=== PATIENT | female | born 1955 | race Caucasian/White ===

== ENCOUNTER → 2016-04-13 17:20 | Outpatient (CLI) | payer BC ==
[2015-03-04 07:11] VITALS: BMI 33.2
[~2016-04-13 17:20] MED LIST: ASPIRIN EC81 M1 PO; DIOVAN HCT 160/1 TA1 PO; NORVASC10 MG PO; PERCOCET 5-3251 TAB PO; VITAMIN D250000 UNIT PO; ZANTAC150 MG PO; ZOCOR20 MG PO
== END | disposition home or self-care (01) ==
LOC: D.MAMMO 15:30
DX: Z12.31 Encounter for screening mammogram for malignant neoplasm of breast (principal)

== ENCOUNTER → 2016-05-13 15:58 | Outpatient (CLI) | payer BC ==
[2015-03-04 07:11] VITALS: BMI 33.2
== END | disposition home or self-care (01) ==
LOC: D.MAMMO 09:30
DX: R92.2 Inconclusive mammogram (principal)

== ENCOUNTER → 2017-07-11 19:55 | Outpatient (CLI) | payer BC ==
[2015-03-04 07:11] VITALS: BMI 33.2
== END | disposition home or self-care (01) ==
LOC: D.MAMMO 14:30
DX: Z12.31 Encounter for screening mammogram for malignant neoplasm of breast (principal)

== ENCOUNTER 2018-07-15 13:12 | Emergency (ER) | payer BC ==
[~2018-07-15] VITALS: Ht 172.7 cm; Wt 97.7 kg
[2018-07-15 13:31] VITALS: Ht 172.7 cm; Wt 97.7 kg
[2018-07-15] MEDS ORDERED: ADVIL200 MG PO (13:35)
[2018-07-15] MEDS ORDERED: OMEPRAZOLE20 M1 PO (13:35)
[2018-07-15] MEDS ORDERED: HYDROCODON-ACE1 EAC7 PO (16:02)
[2018-07-15] MEDS ORDERED: VOLTAREN75 MG PO (16:02)
[2018-07-15 17:54] VITALS: BP 118/80
== END 2018-07-15 17:54 | disposition home or self-care (01) ==
LOC: D.ER 13:12
DX: S42.291A Other displaced fracture of upper end of right humerus, initial encounter for closed fracture (principal); W18.31XA Fall on same level due to stepping on an object, initial encounter; Y93.02 Activity, running; Y92.014 Private driveway to single-family (private) house as the place of occurrence of the external cause

== ENCOUNTER 2018-07-19 09:19 | Inpatient (IN) | payer BC ==
[~2018-07-19] VITALS: Ht 172.7 cm; Wt 82.6 kg
[~2018-07-19 09:19] MED LIST changes: +ADVIL200 MG PO; +HYDROCODON-ACE1 EAC7 PO; +OMEPRAZOLE20 M1 PO; +VOLTAREN75 MG PO
[2018-07-20 12:58] LABS: CALC OSMOLALITY 283 mosm/kg (275-300); CALCIUM 9.9 mg/dL (8.5-10.1); CARBON DIOXIDE 28.6 mmol/L (21.0-32.0); CHLORIDE - SERUM 102 mmol/L (98-107); CREATININE - SERUM 0.8 mg/dL (0.6-1.3); GLUCOSE 159 mg/dL (74-106); POTASSIUM - SERUM 3.6 mmol/L (3.5-5.1); SODIUM 140 mmol/L (136-145); UREA NITROGEN 19 mg/dL (7-18); eGFR NON AFRICAN AMERICAN 76 mL/min (90-120)
[2018-07-20 13:07] LABS: APTT 27.9 SECONDS (22.8-39.4); INR 1.08 (0.85-1.17); PROTIME 13.5 SECONDS (11.6-15.0)
[2018-07-20 13:18] LABS: BASOPHILS 0.1 % (0-2); EOSINOPHILS 2.6 % (0-7); HEMATOCRIT 39.2 % (36.0-48.0); HEMOGLOBIN 13.4 g/dL (12-16); IMMATURE GRANULOCYTES 0.1 % (0-5); LYMPHOCYTES 42.7 % (15-50); MCH 29.3 pg (26.0-34.0); MCHC 34.2 g/dL (31.0-37.0); MCV 85.8 fL (80.0-100.0); MEAN PLATELET VOLUME 9.9 fL (7.4-10.4); MONOCYTES 5.8 % (2-11); NEUTROPHILS 48.7 % (40-80); PLATELET COUNT 238 10x3/uL (130-400); RBC 4.57 10x6/uL (4.00-5.40); RDW 12.4 % (11.5-14.5); WBC 6.9 10x3/uL (4.8-10.8)
[2018-07-20 13:33] LABS: APPEARANCE CLEAR (CLEAR); BACTERIA FEW /hpf (NONE SEEN); BILIRUBIN NEGATIVE (NEGATIVE); COLOR YELLOW (YELLOW); EPITHELIAL CELLS 0-5 /hpf (0-5); GLUCOSE 500 mg/dL (NEGATIVE); KETONE NEGATIVE (NEGATIVE); MUCUS >1+ /lpf (NONE SEEN); NITRITE NEGATIVE (NEGATIVE); PROTEIN NEGATIVE (NEGATIVE); SPECIFIC GRAVITY 1.015 (1.005-1.020); UROBILINOGEN NORMAL (NORMAL); WHITE CELLS - URINE RARE /hpf (0-5)
[2018-07-20 13:34] LABS: RED CELLS - URINE 0-5 /hpf (0-5)
[2018-07-24] MEDS ORDERED: ATARAX 25 MG TA25 MG PO (07:31)
[2018-07-24] MEDS ORDERED: SOLIQUA 100 UNIT3 ML SQ (07:35)
[2018-07-24 07:38] VITALS: BP 139/65; BMI 33.0
--- NOTE | 2018-07-24 10:26 | NUR ---
0945 DR GRULLON HAS CANCELLED PT'S SURGERY FOR TODAY DUE TO A POWER OUTAGE THAT HAS AFFECTED THE COOLING SYSTEM IN THE OR. SURGERY IS TO BE RESCHEDULED FOR TOMORROW. PT TO BE ADMITTED TO HOSPITAL. 1020 REPORT CALLED TO SHELLY MANN RN. PT WILL BE TRANSFERRED TO ROOM 2238 VIA STRETCHER.
[2018-07-24 11:02] VITALS: BP 115/58; Ht 172.7 cm; Wt 82.6 kg
[2018-07-24 16:14] VITALS: BP 112/58
[2018-07-24 17:00] LABS: BASOPHILS 0.2 % (0-2); IMMATURE GRANULOCYTES 0.3 % (0-5); LYMPHOCYTES 36.6 % (15-50); MCH 29.2 pg (26.0-34.0); MCHC 34.2 g/dL (31.0-37.0); MCV 85.4 fL (80.0-100.0); MEAN PLATELET VOLUME 9.6 fL (7.4-10.4); MONOCYTES 7.8 % (2-11); NEUTROPHILS 52.1 % (40-80); PLATELET COUNT 222 10x3/uL (130-400); RBC 4.45 10x6/uL (4.00-5.40); RDW 12.6 % (11.5-14.5); WBC 6.4 10x3/uL (4.8-10.8)
[2018-07-24 17:16] LABS: ALBUMIN 3.5 g/dL (3.4-5.0); ALKALINE PHOSPHATASE 84 U/L (46-116); ALT (SGPT) 38 U/L (10-68); BILIRUBIN - TOTAL 0.79 mg/dL (0.2-1.3); CALC OSMOLALITY 285 mosm/kg (275-300); CALCIUM 9.9 mg/dL (8.5-10.1); CARBON DIOXIDE 27.2 mmol/L (21.0-32.0); CHLORIDE - SERUM 106 mmol/L (98-107); CREATININE - SERUM 0.7 mg/dL (0.6-1.3); GLUCOSE 146 mg/dL (74-106); POTASSIUM - SERUM 3.8 mmol/L (3.5-5.1); SODIUM 141 mmol/L (136-145); UREA NITROGEN 18 mg/dL (7-18); eGFR NON AFRICAN AMERICAN 89 mL/min (90-120)
[2018-07-24 19:05] LABS: APPEARANCE CLEAR (CLEAR); BILIRUBIN NEGATIVE (NEGATIVE); COLOR YELLOW (YELLOW); GLUCOSE NEGATIVE (NEGATIVE); KETONE NEGATIVE (NEGATIVE); NITRITE NEGATIVE (NEGATIVE); PROTEIN NEGATIVE (NEGATIVE); UROBILINOGEN NORMAL (NORMAL)
[2018-07-24 20:28] VITALS: BP 139/68
[2018-07-25 00:40] VITALS: BP 101/53
[2018-07-25 05:21] VITALS: BP 112/51
--- NOTE | 2018-07-25 05:53 | NUR ---
I have reviewed this patient and I concur with the Shift Assessment completed by the Licensed Practical Nurse today this shift.
[2018-07-25 07:22] LABS: BASOPHILS 0.2 % (0-2); HEMATOCRIT 37.4 % (36.0-48.0); HEMOGLOBIN 13.1 g/dL (12-16); IMMATURE GRANULOCYTES 0.3 % (0-5); LYMPHOCYTES 49.2 % (15-50); MCV 85.6 fL (80.0-100.0); MEAN PLATELET VOLUME 9.8 fL (7.4-10.4); MONOCYTES 8.4 % (2-11); NEUTROPHILS 36.9 % (40-80); PLATELET COUNT 228 10x3/uL (130-400); RBC 4.37 10x6/uL (4.00-5.40); RDW 12.8 % (11.5-14.5); WBC 6.4 10x3/uL (4.8-10.8)
[2018-07-25 07:49] LABS: ALBUMIN 3.3 g/dL (3.4-5.0); ALKALINE PHOSPHATASE 81 U/L (46-116); ALT (SGPT) 36 U/L (10-68); BILIRUBIN - TOTAL 0.73 mg/dL (0.2-1.3); CALC OSMOLALITY 287 mosm/kg (275-300); CALCIUM 9.8 mg/dL (8.5-10.1); CARBON DIOXIDE 25.9 mmol/L (21.0-32.0); CHLORIDE - SERUM 108 mmol/L (98-107); CREATININE - SERUM 0.7 mg/dL (0.6-1.3); GLUCOSE 142 mg/dL (74-106); POTASSIUM - SERUM 3.5 mmol/L (3.5-5.1); SODIUM 142 mmol/L (136-145); UREA NITROGEN 20 mg/dL (7-18); eGFR NON AFRICAN AMERICAN 89 mL/min (90-120)
--- NOTE | 2018-07-25 08:35 | NUR ---
PT RESTING IN BED WITH FAMILY AT BEDSIDE. NO ACUTE DISTRESS NOTED AT THIS TIME. BRUISING NOTED TO RIGHT UPPER EXTREMITY, LIMITED ROM TO RIGHT UPPER ARM. IV TO LEFT FOREARM WITH 1/2NS @ 50ML/HR INFUSING VIA PUMP. SITE WITHOUT REDNESS OR EDEMA. REPORTS PAIN 4/10 AT THIS TIME. DENIES FURTHER NEEDS AT THIS TIME. CL WITHIN REACH. ENCOURAGED TO CALL WITH NEEDS. CONTINUE POC
[2018-07-25 08:52] VITALS: BP 122/65
[2018-07-25] MEDS ORDERED: VISTARIL50 MG PO (11:33)
[2018-07-25] MEDS ORDERED: OXYCODONE HCL5 M1 PO (11:33)
[2018-07-25 12:20] VITALS: BP 123/70
--- NOTE | 2018-07-25 12:40 | NUR ---
IV DISCONTINUED FROM LEFT FOREARM. CATH INTACT. DISCHARGE INSTRUCTIONS PROVIDED WITH 2 SCRIPTS. PT DENIES QUESTIONS AT THIS TIME.
== END 2018-07-25 13:25 | disposition home or self-care (01) | DRG 563 ==
LOC: D.MS 07-24 07:10 → D.SDCHOLD 07-24 07:10 → D.MS 07-24 10:38 → D.SDCHOLD 07-25 10:37 → D.MS 07-25 10:53
PROVIDERS: Family Medicine; ADMIT Orthopaedic Surgery; ATTEND Orthopaedic Surgery
DX: S42.291A Other displaced fracture of upper end of right humerus, initial encounter for closed fracture (principal); X58.XXXA Exposure to other specified factors, initial encounter; Z53.8 Procedure and treatment not carried out for other reasons; I10 Essential (primary) hypertension; K21.9 Gastro-esophageal reflux disease without esophagitis; E11.65 Type 2 diabetes mellitus with hyperglycemia; Z78.0 Asymptomatic menopausal state; Z87.891 Personal history of nicotine dependence; E55.9 Vitamin D deficiency, unspecified

== ENCOUNTER 2018-07-31 05:11 | Inpatient (IN) | payer BC ==
[~2018-07-31] VITALS: Ht 172.7 cm; Wt 97.7 kg
[~2018-07-31 05:11] MED LIST changes: +ATARAX 25 MG TA25 MG PO; +OXYCODONE HCL5 M1 PO; +SOLIQUA 100 UNIT3 ML SQ; +VISTARIL50 MG PO
[2018-07-31 05:35] LABS: HEMATOCRIT 43.6 % (36.0-48.0); HEMOGLOBIN 15.3 g/dL (12-16); MCH 29.7 pg (26.0-34.0); MCHC 35.1 g/dL (31.0-37.0); MCV 84.7 fL (80.0-100.0); MEAN PLATELET VOLUME 9.6 fL (7.4-10.4); RBC 5.15 10x6/uL (4.00-5.40); RDW 12.5 % (11.5-14.5); WBC 7.2 10x3/uL (4.8-10.8)
[2018-07-31 06:02] LABS: ANION GAP 12.4 mmol/L (8-16); CALCIUM 10.5 mg/dL (8.5-10.1); CARBON DIOXIDE 28.4 mmol/L (21.0-32.0); CREATININE - SERUM 0.9 mg/dL (0.6-1.3); POTASSIUM - SERUM 3.8 mmol/L (3.5-5.1)
[2018-07-31 06:11] VITALS: BP 117/47; BMI 41.1
[2018-07-31] MEDS ORDERED: HYDROXYZINE HCL50 MG PO (06:20)
[2018-07-31] MEDS ORDERED: MICARDIS HCT 81 EACH PO (06:23)
[2018-07-31] MEDS ORDERED: CADUET 10 MG/101 TAB (06:24)
[2018-07-31] MEDS ORDERED: VOLTAREN75 MG PO (06:26)
[2018-07-31] MEDS ORDERED: BAYER CHEWABLE81 MG PO (06:30)
--- NOTE | 2018-07-31 08:23 | NUR ---
PLASMA BLADE SET TO 6/8 BOVIE PAD RIGHT THIGH [id number] EXP 02/16/2020
--- NOTE | 2018-07-31 10:30 | NUR ---
PT ARRRIVED TO UNIT TO ROOM 2225 ORIENTATED TO ROOM CL IN REACH
[2018-07-31 10:40] VITALS: BP 111/49
[2018-07-31 11:00] VITALS: BP 106/52
[2018-07-31 17:11] VITALS: BP 110/71
[2018-07-31 19:56] VITALS: BP 110/71; Ht 172.7 cm; Wt 97.7 kg
[2018-07-31 20:00] VITALS: BP 108/50
[2018-08-01] VITALS: BP 112/58
[2018-08-01 04:00] VITALS: BP 110/54
--- NOTE | 2018-08-01 04:21 | NUR ---
I have reviewed this patient and I concur with the Shift Assessment completed by the Licensed Practical Nurse today this shift.
[2018-08-01 06:45] LABS: BASOPHILS 0.1 % (0-2); HEMOGLOBIN 12.4 g/dL (12-16); IMMATURE GRANULOCYTES 0.2 % (0-5); LYMPHOCYTES 23.9 % (15-50); MCHC 33.5 g/dL (31.0-37.0); MCV 86.4 fL (80.0-100.0); MEAN PLATELET VOLUME 9.6 fL (7.4-10.4); MONOCYTES 10.3 % (2-11); NEUTROPHILS 64.5 % (40-80); PLATELET COUNT 214 10x3/uL (130-400); RBC 4.28 10x6/uL (4.00-5.40); RDW 12.9 % (11.5-14.5); WBC 8.1 10x3/uL (4.8-10.8)
[2018-08-01 07:01] LABS: CALC OSMOLALITY 279 mosm/kg (275-300); CALCIUM 9.5 mg/dL (8.5-10.1); CARBON DIOXIDE 25.1 mmol/L (21.0-32.0); CHLORIDE - SERUM 104 mmol/L (98-107); CREATININE - SERUM 0.7 mg/dL (0.6-1.3); GLUCOSE 163 mg/dL (74-106); MAGNESIUM - SERUM 1.8 mg/dL (1.8-2.4); SODIUM 137 mmol/L (136-145); UREA NITROGEN 17 mg/dL (7-18); eGFR NON AFRICAN AMERICAN 89 mL/min (90-120)
[2018-08-01 08:54] VITALS: BP 158/70
[2018-08-01 12:43] VITALS: BP 150/70
[2018-08-01 17:05] VITALS: BP 194/83
[2018-08-01 20:00] VITALS: BP 193/79
[2018-08-02 03:15] VITALS: BP 146/74
[2018-08-02 04:00] VITALS: BP 110/67
[2018-08-02 04:21] LABS: BASOPHILS 0 % (0-2); CALCIUM 10.1 mg/dL (8.5-10.1); CARBON DIOXIDE 24.8 mmol/L (21.0-32.0); CHLORIDE - SERUM 97 mmol/L (98-107); CREATININE - SERUM 0.8 mg/dL (0.6-1.3); EOSINOPHILS 0.1 % (0-7); GLUCOSE 210 mg/dL (74-106); HEMATOCRIT 37.6 % (36.0-48.0); HEMOGLOBIN 13.1 g/dL (12-16); IMMATURE GRANULOCYTES 0.4 % (0-5); LYMPHOCYTES 13.1 % (15-50); MAGNESIUM - SERUM 1.5 mg/dL (1.8-2.4); MCH 29.1 pg (26.0-34.0); MCHC 34.8 g/dL (31.0-37.0); MEAN PLATELET VOLUME 9.5 fL (7.4-10.4); NEUTROPHILS 72.4 % (40-80); PLATELET COUNT 187 10x3/uL (130-400); RDW 12.4 % (11.5-14.5); SODIUM 132 mmol/L (136-145); WBC 6.9 10x3/uL (4.8-10.8); eGFR NON AFRICAN AMERICAN 76 mL/min (90-120)
[2018-08-02 04:22] LABS: CALC OSMOLALITY 269 mosm/kg (275-300); POTASSIUM - SERUM 3.2 mmol/L (3.5-5.1); UREA NITROGEN 11 mg/dL (7-18)
[2018-08-02 04:26] LABS: MCV 83.6 fL (80.0-100.0)
--- NOTE | 2018-08-02 05:40 | NUR ---
I have reviewed this patient and I concur with the Shift Assessment completed by the Licensed Practical Nurse today this shift.
[2018-08-02] MEDS ORDERED: VISTARIL50 MG PO (08:53)
[2018-08-02] MEDS ORDERED: OXYCODONE HCL5 M1 PO (08:53)
--- NOTE | 2018-08-02 08:55 | NUR ---
PT RESTING IN BED WITH RIGHT ARM IN SLING. NO ACUTE DISTRESS NOTED. REPORTS PAIN 4/10 AT THIS TIME. IV TO LEFT HAND WITH 1/2 NS @ 50 ML/HR INFUSING VIA PUMP. SITE WITHOUT REDNESS OR EDEMA. PT DENIES FURTHER NEEDS AT THIS TIME. CL WITHIN REACH. ENCOURAGED TO CALL WITH NEEDS. CONTINUE POC
[2018-08-02 09:29] VITALS: BP 136/64
--- NOTE | 2018-08-03 13:30 | MORECARE ---
CASE MANAGEMENT DISCHARGE SUMMARY PATIENT: FELIPE CHAUHAN UNIT: [id number] ADM DATE: 07/31/18 AGE: 62 : 53 SEX: F ROOM/BED: D.2225 AUTHOR: STONEY SAINZ PHYSICIAN: REFERRING PHYSICIAN: FABIAN GRULLON DO DATE OF SERVICE: 08/03/18 Discharge Plan Patient Name: FELIPE CHAUHAN Facility: [facility]:[place] : 1955 Planned Disposition: Anticipated Discharge Date: Discharge Date: 08/02/2018 Expected LOS: 0 Initial Reviewer: [email or web address] Initial Review Date: 08/03/2018 Generated: 08/03/18 2:30 pm Patient Name: FELIPE CHAUHAN Page [phone] at 1330 All edits/amendments must be made on the electronic document DICTATION DATE: 08/03/18 1329 LACE PAPER MACHINE OPERATOR: DM 08/03/18 1329 RPT#: [id number] DC DATE:08/02/18 STATUS: DIS IN [facility] [address] [place] [address] END OF REPORT
== END 2018-08-02 13:10 | disposition home or self-care (01) | DRG 483 ==
LOC: D.SDCHOLD 05:11 → D.MS 10:20
PROVIDERS: Anesthesiology; Family Medicine; ADMIT Orthopaedic Surgery; ATTEND Orthopaedic Surgery
PROC: 0RRJ00Z Replacement of Right Shoulder Joint with Reverse Ball and Socket Synthetic Substitute, Open Approach (ICD-10-PCS; principal; 2018-07-31 07:00)
DX: S42.201A Unspecified fracture of upper end of right humerus, initial encounter for closed fracture (principal); E11.65 Type 2 diabetes mellitus with hyperglycemia; I10 Essential (primary) hypertension; K21.9 Gastro-esophageal reflux disease without esophagitis; E87.6 Hypokalemia; E83.42 Hypomagnesemia

== ENCOUNTER 2018-08-08 11:05 | Inpatient (IN) | payer BC ==
[~2018-08-08] VITALS: Ht 172.7 cm; Wt 90.7 kg
[~2018-08-08 11:05] MED LIST changes: +BAYER CHEWABLE81 MG PO; +CADUET 10 MG/101 TAB; +HYDROXYZINE HCL50 MG PO; +MICARDIS HCT 81 EACH PO
[2018-08-08 14:12] VITALS: BP 117/54
--- NOTE | 2018-08-08 14:15 | NUR ---
ASSESSMENT PER FLOW SHEET. PT IS WITHOUT DISTRESS.IV SITED TO LEFT HAND X1 STICK USING ASEPTIC TECH,22G.ORIENTATION TO ROOM.CALL LIGHT IN REACH.
[2018-08-08 14:17] VITALS: BP 115/54; BMI 30.4
--- NOTE | 2018-08-08 14:45 | NUR ---
TO OR VIA BED
[2018-08-08 14:48] LABS: BASOPHILS 0.1 % (0-2); EOSINOPHILS 2.2 % (0-7); HEMATOCRIT 34.3 % (36.0-48.0); HEMOGLOBIN 11.8 g/dL (12-16); IMMATURE GRANULOCYTES 0.5 % (0-5); LYMPHOCYTES 36.6 % (15-50); MCH 28.9 pg (26.0-34.0); MCHC 34.4 g/dL (31.0-37.0); MCV 83.9 fL (80.0-100.0); NEUTROPHILS 48.6 % (40-80); PLATELET COUNT 301 10x3/uL (130-400); RBC 4.09 10x6/uL (4.00-5.40); RDW 12.5 % (11.5-14.5); WBC 8.2 10x3/uL (4.8-10.8)
[2018-08-08 15:48] LABS: ALBUMIN 2.7 g/dL (3.4-5.0); ALKALINE PHOSPHATASE 132 U/L (46-116); ALT (SGPT) 39 U/L (10-68); BILIRUBIN - TOTAL 0.51 mg/dL (0.2-1.3); C-REACTIVE PROTEIN 14.5 mg/dL (0.0-0.9); CALC OSMOLALITY 276 mosm/kg (275-300); CALCIUM 10.2 mg/dL (8.5-10.1); CARBON DIOXIDE 28.8 mmol/L (21.0-32.0); CHLORIDE - SERUM 100 mmol/L (98-107); CREATININE - SERUM 0.7 mg/dL (0.6-1.3); GLUCOSE 119 mg/dL (74-106); POTASSIUM - SERUM 3.4 mmol/L (3.5-5.1); SODIUM 137 mmol/L (136-145); UREA NITROGEN 17 mg/dL (7-18); eGFR NON AFRICAN AMERICAN 89 mL/min (90-120)
[2018-08-08 15:54] LABS: ERYTHROCYTE SEDIMENTATION RATE 57 mm/hr (0-30)
--- NOTE | 2018-08-08 17:05 | NUR ---
TRAMINO AND BEACH CHAIR TABLE DEVICE USED FOR POSITIONING
[2018-08-08 18:42] VITALS: BP 102/43
--- NOTE | 2018-08-08 20:00 | NUR ---
PT SITTING UP IN BED, WITHOUT DISTRESS. AT BEDSIDE. ALERT AND ORIENTED. RIGHT ARM IN SLING, DRESSING TO RIGHT SHOULDER CDI. HEMOVAC WITH BLOODY DRAINAGE. WOUND VAC IN PLACE. IV LEFT HAND INFUSING 1/2NS @ 75. O2 4L/NC. SCDS IN PLACE. SIPPING WATER AND EATING ICE CHIPS AT THIS TIME. TOLERATING WELL. CL IN REACH, WILL CTM
--- NOTE | 2018-08-08 20:36 | NUR ---
SIPS OF EATER AND ICE CHIPS. PT STILL DENIES PAIN.WITHOUT CHANGE.CONT PLAN OF CARE
[2018-08-08 20:51] VITALS: BP 106/50
--- NOTE | 2018-08-08 21:00 | NUR ---
ASSISTED PT TO BATHROOM, VOIDED WITHOUT DIFFICULTY. PT STATES PAIN 5/10. GAVE OXY ORDERED. DENIES OTHER NEEDS. CL IN REACH, WILL CTM
--- NOTE | 2018-08-08 23:00 | NUR ---
PT EATING JELLO, DUGLAS CRACKERS, AND PEANUT BUTTER. DRINKING DIET COKE. TOLERATING WELL. DENIES OTHER NEEDS. CL IN REACH, WILL CTM
--- NOTE | 2018-08-09 00:20 | NUR ---
PT STATES PAIN 09/05. GAVE VISTARIL AND SCHEDULED TORADOL. APPLIED ICE PACK TO RIGHT SHOULDER. REPOSITIONED IN BED FOR COMFORT
[2018-08-09 01:35] VITALS: BP 117/50
--- NOTE | 2018-08-09 02:10 | NUR ---
PT WITH PAIN 10/06. GAVE OXY ORDERED. APPLIED NEW ICE PACK TO RIGHT SHOULDER. DENIES OTHER NEEDS. CL IN REACH, WILL CTM
[2018-08-09 06:17] LABS: BASOPHILS 0.1 % (0-2); EOSINOPHILS 1.5 % (0-7); HEMATOCRIT 33.9 % (36.0-48.0); HEMOGLOBIN 11.2 g/dL (12-16); IMMATURE GRANULOCYTES 0.4 % (0-5); LYMPHOCYTES 35.1 % (15-50); MCH 28.4 pg (26.0-34.0); MCV 85.8 fL (80.0-100.0); MEAN PLATELET VOLUME 9.2 fL (7.4-10.4); MONOCYTES 14.7 % (2-11); NEUTROPHILS 48.2 % (40-80); PLATELET COUNT 272 10x3/uL (130-400); RBC 3.95 10x6/uL (4.00-5.40); RDW 12.7 % (11.5-14.5); WBC 7.3 10x3/uL (4.8-10.8)
[2018-08-09 06:31] VITALS: BP 119/47
[2018-08-09 06:34] LABS: ALBUMIN 2.4 g/dL (3.4-5.0); ANION GAP 11.3 mmol/L (8-16); BILIRUBIN - TOTAL 0.55 mg/dL (0.2-1.3); CALCIUM 9.5 mg/dL (8.5-10.1); CARBON DIOXIDE 29.1 mmol/L (21.0-32.0); POTASSIUM - SERUM 3.4 mmol/L (3.5-5.1); PROTEIN - SERUM 5.9 g/dL (6.4-8.2)
[2018-08-09 06:39] LABS: CREATININE - SERUM 0.9 mg/dL (0.6-1.3)
--- NOTE | 2018-08-09 07:56 | OP ---
PATIENT NAME: FELIPE CHAUHAN MEDICAL RECORD: [id number] :51 LOCATION:D.MS Small4 ADMISSION DATE:08/08/18 SURGEON: FABIAN GRULLON DO DATE OF OPERATION: 08/08/2018 PROCEDURE PERFORMED: Right shoulder incision and debridement with poly exchange. PREOPERATIVE DIAGNOSIS: Right shoulder periprosthetic joint infection. POSTOPERATIVE DIAGNOSIS: Right shoulder periprosthetic joint infection. INDICATIONS: Ms. Chauhan is a 62-year-old female who 8 days ago underwent a right reverse total shoulder for fracture of the proximal humerus. She presented to my office today after having some drainage started yesterday and then more drainage today with purulent drainage out of her right shoulder from the incision site. She did not have any fevers, but she did have purulent drainage from the shoulder. She was directly admitted and signed up for surgery today. The patient was consented for I&D with poly exchange due to the acute infection. DESCRIPTION OF PROCEDURE: The patient received a block by anesthesia in the preoperative area, taken to the operative suite, laid in the supine position, then intubated and placed in the beach chair position. The right shoulder was prepped and draped in sterile fashion. Timeout was performed, everyone was in agreement of the correct side, site, and patient and procedure. Antibiotics were held until cultures were taken. Once the time out was performed, the incision was opened up and it was cultured. Then, 1 gram of vancomycin was given. I then used 3 liters of normal saline to irrigate the shoulder. The shoulder was then dislocated and the hardware was all stable, was not loose and the poly was removed off the humeral stem. Once this was done, the Bactisure was used to irrigate the shoulder thoroughly and a curette was used to scrape and debride any tissue that was . This was debrided thoroughly and then 2 more bags of 3 liters each of normal saline were then used to irrigate the shoulder. The new poly was popped on in between the second and third bag. The shoulder was reduced and ranged well and there was appropriate tautness on the deltoid and the conjoined tendon. Then, the third bag was used to irrigate over that. The drain was then placed in the superior shoulder going through the deltoid and antibiotic powders of vancomycin and tobramycin were placed in the shoulder. The shoulder was then closed with 3-0 Monocryl in an inverted interrupted fashion and 4-0 Monocryl ran on the skin and then a Prevena VAC was placed on the skin. The drain was sewed into place and the Hemovac was hooked up. The patient was placed in a sling, awakened, and taken to the recovery in stable condition. Blood loss was approximately 200 mL. COMPLICATIONS: None. TRANSINT:[id number] Voice Confirmation ID: [id number] DOCUMENT ID: [id number] OPERATIVE REPORT [id number] FELIPE CHAUHAN,FABIAN Lopez DO at 0756 CC: [id number] DICTATION DATE: 08/08/181820 FOOT AND ANKLE SURGEON: 08/09/18 0502 ADM IN [facility] [address] [place] [address]
[2018-08-09 10:10] VITALS: BP 115/62
[2018-08-09 12:13] VITALS: Ht 172.7 cm; Wt 90.7 kg
[2018-08-09 14:30] VITALS: BP 107/46
[2018-08-09 17:59] VITALS: BP 125/60
--- NOTE | 2018-08-09 19:45 | NUR ---
PT SITTING UP IN BED WITHOUT DISTRESS. NO PAIN AT THIS TIME, JUST TOOK OXY ON PREVIOUS SHIFT. O2 2L/NC. IV LEFT HAND INFUSING 1/2NS @ 75. ALERT AND ORIENTED. DENIES NEEDS. SCDS IN PLACE. WILL CTM
[2018-08-09 19:58] VITALS: BP 111/53
[2018-08-10] VITALS: BP 157/62
[2018-08-10 03:55] LABS: BASOPHILS 0.1 % (0-2); EOSINOPHILS 2.9 % (0-7); HEMATOCRIT 30.6 % (36.0-48.0); HEMOGLOBIN 10.3 g/dL (12-16); IMMATURE GRANULOCYTES 0.3 % (0-5); LYMPHOCYTES 43.6 % (15-50); MCH 28.2 pg (26.0-34.0); MCHC 33.7 g/dL (31.0-37.0); MEAN PLATELET VOLUME 8.8 fL (7.4-10.4); MONOCYTES 13.6 % (2-11); NEUTROPHILS 39.5 % (40-80); PLATELET COUNT 259 10x3/uL (130-400); RBC 3.65 10x6/uL (4.00-5.40); RDW 12.3 % (11.5-14.5); WBC 7.2 10x3/uL (4.8-10.8)
[2018-08-10 03:56] LABS: MCV 83.8 fL (80.0-100.0)
[2018-08-10 04:00] VITALS: BP 178/72
[2018-08-10 04:08] LABS: ALBUMIN 2.2 g/dL (3.4-5.0); ALKALINE PHOSPHATASE 109 U/L (46-116); ALT (SGPT) 26 U/L (10-68); BILIRUBIN - TOTAL 0.47 mg/dL (0.2-1.3); CALC OSMOLALITY 281 mosm/kg (275-300); CARBON DIOXIDE 27.1 mmol/L (21.0-32.0); CHLORIDE - SERUM 104 mmol/L (98-107); CREATININE - SERUM 0.8 mg/dL (0.6-1.3); GLUCOSE 183 mg/dL (74-106); POTASSIUM - SERUM 3.2 mmol/L (3.5-5.1); PROTEIN - SERUM 5.5 g/dL (6.4-8.2); SODIUM 138 mmol/L (136-145); UREA NITROGEN 14 mg/dL (7-18); eGFR NON AFRICAN AMERICAN 76 mL/min (90-120)
--- NOTE | 2018-08-10 07:50 | NUR ---
AWAKE AND ALERT. ORIENTED X3. REQUESTED AND GIVEN 10 MG OXY PO FOR C/O RIGHT ARM PAIN LEVEL 8. WILL MONITOR.
[2018-08-10 08:59] VITALS: BP 173/95
--- NOTE | 2018-08-10 09:57 | NUR ---
AWAKE AND ALERT. ORIENTED X3. REPORTS PAIN IMPROVED TO LEVEL 3 NOW. UP TO BR WITH MIN ASSIST OF ONE. DAUGHTER AT BEDSIDE. LUNGS ARE CLEAR BILATERALLY, NO COUGH NOTED. SKIN IS INTACT WITHOUT REDNESS EXCEPT INCISION TO RIGHT SHOULDER WHICH IS CLEAN AND DRY IWTH WOUND VAC IN PLACE.. SCANT OUTPUT AT THIS TIME. IV TO LEFT AC IS PATENT WITHOUT REDNESS AT INSERTION SITE. DENIES NEEDS.
--- NOTE | 2018-08-10 10:00 | NUR ---
RESTING QUIETLY IN BED. DAUGHTER AT BEDSIDE. SLING IN PLACE TO RIGHT ARM. DENIES NEEDS.
[2018-08-10 12:14] LABS: FUNGUS STAIN Final report (())
--- NOTE | 2018-08-10 12:30 | NUR ---
ATE ABOUT 75% OF LUNCH. DENIES NEEDS.
--- NOTE | 2018-08-10 13:46 | NUR ---
REQUESTED AND GIVEN 10MG OXY PO FOR C/O RIGHT SHOULDER PAIN LEVEL 8. WILL MONITOR.
[2018-08-10 13:48] VITALS: BP 186/81
--- NOTE | 2018-08-10 15:42 | MORECARE ---
CASE MANAGEMENT DISCHARGE SUMMARY PATIENT: FELIPE CHAUHAN UNIT: [id number] ADM DATE: 08/08/18 AGE: 62 : 53 SEX: F ROOM/BED: D.2204 AUTHOR: STONEY SAINZ PHYSICIAN: REFERRING PHYSICIAN: FABIAN GRULLON DO DATE OF SERVICE: 08/10/18 Discharge Plan Patient Name: FELIPE CHAUHAN Facility: [facility]:[place] : 1955 Planned Disposition: Anticipated Discharge Date: Discharge Date: Expected LOS: Initial Reviewer: [email or web address] Initial Review Date: 08/08/2018 Generated: 08/10/18 4:42 pm Comments DCP- Discharge Planning Updated by [email or web address]: Marissa Dunn on 08/10/18 2:[address] LYUBOV FROM [facility] CALLED TO FIND OUT A DISCHARGE PLAN, SHE ASKED ABOUT LTACH, IF THE PATIENT WAS GOING TO NEED ABX MORE THAT ONCE A DAY SHE ALSO SAID THAT [facility], [facility] AND [place] ARE IN-NETWORK. I WILL GET WITH MD TO SEE WHAT THEY ARE THINKING AND SPEAK WITH PATIENT LYUBOV CALL BACK NUMBER IS [phone] EXT # [phone] CM TO FOLLOW AND ASSIST WITH DC PLANNING Patient Name: FELIPE CHAUHAN Page [phone] at 1542 All edits/amendments must be made on the electronic document DICTATION DATE: 08/10/18 154 SECURITY CLERK: JOSE FRANCISCO 08/10/18 1542 RPT#: [id number] DC DATE: STATUS: ADM IN [facility] [address] [place] [address] END OF REPORT
--- NOTE | 2018-08-10 16:07 | MORECARE ---
CASE MANAGEMENT DISCHARGE SUMMARY PATIENT: FELIPE CHAUHAN UNIT: [id number] ADM DATE: 08/08/18 AGE: 62 : 53 SEX: F ROOM/BED: D.2204 AUTHOR: STONEY SAINZ PHYSICIAN: REFERRING PHYSICIAN: FABIAN GRULLON DO DATE OF SERVICE: 08/10/18 Discharge Plan Patient Name: FELIPE CHAUHAN Facility: [facility]:[place] : 1955 Planned Disposition: Home or Self Care Anticipated Discharge Date: Discharge Date: Expected LOS: Initial Reviewer: [email or web address] Initial Review Date: 08/08/2018 Generated: 08/10/18 5:06 pm Comments DCP- Discharge Planning Updated by [email or web address]: Marissa Dunn on 08/10/18 2:[address]UBOV FROM [facility] CALLED TO FIND OUT A DISCHARGE PLAN, SHE ASKED ABOUT LTACH, IF THE PATIENT WAS GOING TO NEED ABX MORE THAT ONCE A DAY SHE ALSO SAID THAT [facility], [facility] AND [employer] [facility] ARE IN-NETWORK. I WILL GET WITH MD TO SEE WHAT THEY ARE THINKING AND SPEAK WITH PATIENT LYUBOV CALL BACK NUMBER IS [phone] EXT # [phone] CM TO FOLLOW AND ASSIST WITH DC PLANNING DCPIA - Discharge Planning Initial Assessment Updated by [email or web address]: Marissa Dunn on 08/10/18 4:03 pm * Is the patient Alert and Oriented? Yes * How many steps to enter\exit or inside your home? STAIRS * PCP JESÚS * Pharmacy [facility] * Preadmission Environment Home with Family * ADLs Independent * Equipment None * List name and contact numbers for known caregivers / representatives who currently or will assist patient after discharge: ADRIANA [phone] * Verbal permission to speak to the caregivers and representatives has been obtained from the patient. Yes * Community resources currently utilized None * Additional services required to return to the preadmission environment? Yes * Can the patient safely return to the preadmission environment? Yes * Has this patient been hospitalized within the prior 30 days at any hospital? Yes Last DP export: 08/10/18 2:42 p Patient Name: FELIPE CHAUHAN Page [id number] at 1607 All edits/amendments must be made on the electronic document DICTATION DATE: 08/10/181605 DOCUMENTATION CLERK: JOSE FRANCISCO 08/10/181605 RPT#: [id number] DC DATE: STATUS: ADM IN [facility] [address] [place] [address] END OF REPORT
--- NOTE | 2018-08-10 16:15 | MORECARE ---
CASE MANAGEMENT DISCHARGE SUMMARY PATIENT: FELIPE CHAUHAN UNIT: [id number] ADM DATE: 08/08/18 AGE: 62 : 53 SEX: F ROOM/BED: D.2204 AUTHOR: STONEY SAINZ PHYSICIAN: REFERRING PHYSICIAN: FABIAN GRULLON DO DATE OF SERVICE: 08/10/18 Discharge Plan Patient Name: FELIPE CHAUHAN Facility: [facility]:[place] : 1955 Planned Disposition: Home or Self Care Anticipated Discharge Date: Discharge Date: Expected LOS: Initial Reviewer: [email or web address] Initial Review Date: 08/08/2018 Generated: 08/10/18 5:15 pm Comments DCP- Discharge Planning Updated by [email or web address]: Marissa Dunn on 08/10/18 3:[address] Patient Name: FELIPE CHAUHAN Admission Status: Elective Accout number: [id number] Admission Date: 08-08-2018 : 1955 Admission Diagnosis: Attending: FABIAN GRULLON Current LOS: 2 Anticipated DC Date: Planned Disposition: Home or Self Care Primary Insurance: [employer] [facility] Discharge Planning Comments: CM met with patient to complete initial dc planning assessment. CM educated patient on the CM role and verbal consent given by patient to complete assessment. Patient lives at home with her where she is independent with her care. At discharge patient is unsure on what her discharge plan is. It will depend on what abx and how often she will receive them. CM discussed availability of home health, rehab services, and medical equipment. We will wait to see what the patient will need. Patient denied known discharge needs at this time. CM will continue to follow and will assist as needed with dc plans/needs. Ferruler: Marissa Dunn DCP- Discharge Planning Updated by [id number]: Marissa Dunn on 08/10/18 2:[address] LYUBOV FROM [employer] CALLED TO FIND OUT A DISCHARGE PLAN, SHE ASKED ABOUT LTACH, IF THE PATIENT WAS GOING TO NEED ABX MORE THAT ONCE A DAY SHE ALSO SAID THAT [facility], [facility] [employer] AND [facility] [employer] ARE IN-NETWORK. I WILL GET WITH MD TO SEE WHAT THEY ARE THINKING AND SPEAK WITH PATIENT LYUBOV CALL BACK NUMBER IS [phone] EXT # [phone] CM TO FOLLOW AND ASSIST WITH DC PLANNING DCPIA - Discharge Planning Initial Assessment Updated by [email or web address]: Marissa Dunn on 08/10/18 4:03 pm * Is the patient Alert and Oriented? Yes * How many steps to enter\exit or inside your home? STAIRS * PCP JESÚS * Pharmacy [facility] * Preadmission Environment Home with Family * ADLs Independent * Equipment None * List name and contact numbers for known caregivers / representatives who currently or will assist patient after discharge: ADRIANA [phone] * Verbal permission to speak to the caregivers and representatives has been obtained from the patient. Yes * Community resources currently utilized None * Additional services required to return to the preadmission environment? Yes * Can the patient safely return to the preadmission environment? Yes * Has this patient been hospitalized within the prior 30 days at any hospital? Yes Last DP export: 08/10/18 3:06 p Patient Name: FELIPE CHAUHAN Page [phone] at 1615 All edits/amendments must be made on the electronic document DICTATION DATE: 08/10/18 161 FLIGHT PARAMEDIC: JOSE FRANCISCO 08/10/18 161 RPT#: [id number] DC DATE: STATUS: ADM IN [facility] [address] [place] [address] END OF REPORT
[2018-08-10 17:49] VITALS: BP 157/77
[2018-08-10 20:00] VITALS: BP 141/62
[2018-08-11] VITALS: BP 150/65
[2018-08-11 04:00] VITALS: BP 144/78
[2018-08-11 06:52] LABS: BASOPHILS 0.1 % (0-2); EOSINOPHILS 3.2 % (0-7); HEMOGLOBIN 10.7 g/dL (12-16); IMMATURE GRANULOCYTES 0.3 % (0-5); LYMPHOCYTES 39.8 % (15-50); MCH 28.2 pg (26.0-34.0); MCHC 33.4 g/dL (31.0-37.0); MCV 84.2 fL (80.0-100.0); MEAN PLATELET VOLUME 8.8 fL (7.4-10.4); MONOCYTES 13.2 % (2-11); NEUTROPHILS 43.4 % (40-80); PLATELET COUNT 274 10x3/uL (130-400); RDW 12.5 % (11.5-14.5); WBC 7.1 10x3/uL (4.8-10.8)
[2018-08-11 07:29] LABS: ALBUMIN 2.3 g/dL (3.4-5.0); ALKALINE PHOSPHATASE 102 U/L (46-116); ALT (SGPT) 27 U/L (10-68); BILIRUBIN - TOTAL 0.54 mg/dL (0.2-1.3); CALCIUM 9.5 mg/dL (8.5-10.1); CARBON DIOXIDE 25.8 mmol/L (21.0-32.0); CHLORIDE - SERUM 103 mmol/L (98-107); CREATININE - SERUM 0.7 mg/dL (0.6-1.3); POTASSIUM - SERUM 3.4 mmol/L (3.5-5.1); PROTEIN - SERUM 5.9 g/dL (6.4-8.2); SODIUM 137 mmol/L (136-145); UREA NITROGEN 11 mg/dL (7-18); eGFR NON AFRICAN AMERICAN 89 mL/min (90-120)
[2018-08-11 07:35] LABS: CALC OSMOLALITY 274 mosm/kg (275-300); GLUCOSE 127 mg/dL (74-106)
--- NOTE | 2018-08-11 08:10 | NUR ---
PT ALERT X 4. BREATH SOUNDS CLEAR BILAT. DRESSING TO RIGHT SHOULDER CDI, WOUND VAC IN PLACE, NO OUTPUT, SLING IN PLACE. PT REPORTING PAIN OF 5/10, WILL MONITOR. PICC LINE TO LEFT UPPER ARM, PATENT, DRESSING CDI. FAMILY AT BEDSIDE. BED LOW, CALL LIGHT IN REACH. NO OTHER NEEDS AT THIS TIME.
[2018-08-11 09:43] VITALS: BP 174/67
[2018-08-11 14:17] VITALS: BP 152/63
[2018-08-11 17:44] VITALS: BP 179/95
--- NOTE | 2018-08-11 19:10 | NUR ---
PT ALERT AND ORIENTED. DAUGHTER AT BEDSIDE. PT RIGHT SHOULDER IN IMMOBILIZER. HAS WOUND VAC CONNECTED TO SHOULDER INCISION. CURRENTLY NO OUTPUT IN WOUND VAC. SUCTION ON AND MACHINE IS WORKING APPROPRIATELY. PATIENT REQUESTS PAIN MEDICINE. RATES PAIN 8/10 AND SEVERE DULL. PT IS AMBULATORY TO BATHROOM WITH ASSISTANCE. DENIES FURTHER NEEDS FROM NURSING STAFF. HAS LEFT UPPER ARM PICC LINE WITH BRUISING NOTED, BUT FLUSHES AND PULLS BACK EFFECTIVELY. CALL LIGHT IS IN REACH. PATIENT DEMONSTRATES HOW TO USE CORRECTLY. BED IN LOWEST POSITION. SIDE RAILS UP X 2. VERBALIZES SHE WILL USE CALL LIGHT WHEN IN NEED OF ASSISTANCE.
[2018-08-11 20:00] VITALS: BP 181/69
[2018-08-12] VITALS: BP 173/74
[2018-08-12 04:00] VITALS: BP 168/82
--- NOTE | 2018-08-12 04:38 | NUR ---
I have reviewed this patient and I concur with the Shift Assessment completed by the Licensed Practical Nurse today this shift.
[2018-08-12 07:24] LABS: ALBUMIN 2.6 g/dL (3.4-5.0); ALKALINE PHOSPHATASE 115 U/L (46-116); ALT (SGPT) 22 U/L (10-68); BILIRUBIN - TOTAL 0.58 mg/dL (0.2-1.3); CALC OSMOLALITY 278 mosm/kg (275-300); CALCIUM 10.1 mg/dL (8.5-10.1); CARBON DIOXIDE 23.9 mmol/L (21.0-32.0); CHLORIDE - SERUM 103 mmol/L (98-107); CREATININE - SERUM 0.8 mg/dL (0.6-1.3); GLUCOSE 135 mg/dL (74-106); POTASSIUM - SERUM 3.8 mmol/L (3.5-5.1); PROTEIN - SERUM 6.4 g/dL (6.4-8.2); SODIUM 139 mmol/L (136-145); UREA NITROGEN 10 mg/dL (7-18); eGFR NON AFRICAN AMERICAN 76 mL/min (90-120)
--- NOTE | 2018-08-12 07:48 | NUR ---
PT ALERT X 4. BREATH SOUNDS CLEAR BILAT. WOUND VAC TO RIGHT SHOULDER, NO OUTPUT. PICC LINE TO LEFT UPPER ARM, PATENT, DRESSING CDI. PT REPORTING PAIN OF 6/10, WILL MONITOR. FAMILY AT BEDSIDE. BED LOW, CALL LIGHT IN REACH. NO OTHER NEEDS AT THIS TIME.
[2018-08-12 10:13] VITALS: BP 183/68
[2018-08-12 10:28] LABS: BASOPHILS 0.1 % (0-2); EOSINOPHILS 2.6 % (0-7); HEMATOCRIT 31.9 % (36.0-48.0); HEMOGLOBIN 10.7 g/dL (12-16); IMMATURE GRANULOCYTES 0.2 % (0-5); LYMPHOCYTES 31.3 % (15-50); MCHC 33.5 g/dL (31.0-37.0); MCV 83.5 fL (80.0-100.0); MEAN PLATELET VOLUME 8.7 fL (7.4-10.4); MONOCYTES 9.2 % (2-11); NEUTROPHILS 56.6 % (40-80); PLATELET COUNT 273 10x3/uL (130-400); RBC 3.82 10x6/uL (4.00-5.40); RDW 12.4 % (11.5-14.5); WBC 8.4 10x3/uL (4.8-10.8)
[2018-08-12 13:54] VITALS: BP 187/79
[2018-08-12 17:49] VITALS: BP 152/77
--- NOTE | 2018-08-12 19:30 | NUR ---
PT ALERT AND ORIENTED. AT BEDSIDE. RIGHT SHOULDER IN SLING AND HAS WOUND VAC TO THE RIGHT SHOULDER. NO OUT PUT NOTED IN VAC CONTAINER. HAS UPPER LEFT ARM PICC LINE. REQUESTS PAIN MEDICINE WHEN AVAILABLE. DENIES FURTHER NEEDS AT THIS TIME. CALL LIGHT IN REACH.
[2018-08-12 21:25] VITALS: BP 179/67
--- NOTE | 2018-08-13 03:03 | NUR ---
I have reviewed this patient and I concur with the Shift Assessment completed by the Licensed Practical Nurse today this shift.
[2018-08-13 05:29] LABS: BASOPHILS 0.1 % (0-2); EOSINOPHILS 3.3 % (0-7); HEMATOCRIT 31.6 % (36.0-48.0); HEMOGLOBIN 10.5 g/dL (12-16); IMMATURE GRANULOCYTES 0.3 % (0-5); LYMPHOCYTES 38.2 % (15-50); MCH 27.8 pg (26.0-34.0); MCHC 33.2 g/dL (31.0-37.0); MCV 83.6 fL (80.0-100.0); MEAN PLATELET VOLUME 8.8 fL (7.4-10.4); MONOCYTES 8.3 % (2-11); NEUTROPHILS 49.8 % (40-80); PLATELET COUNT 279 10x3/uL (130-400); RBC 3.78 10x6/uL (4.00-5.40); RDW 12.5 % (11.5-14.5)
[2018-08-13 06:08] LABS: ALBUMIN 2.4 g/dL (3.4-5.0); ALKALINE PHOSPHATASE 103 U/L (46-116); ALT (SGPT) 22 U/L (10-68); BILIRUBIN - TOTAL 0.47 mg/dL (0.2-1.3); CALCIUM 9.7 mg/dL (8.5-10.1); CARBON DIOXIDE 27.1 mmol/L (21.0-32.0); CHLORIDE - SERUM 104 mmol/L (98-107); CREATININE - SERUM 0.7 mg/dL (0.6-1.3); GLUCOSE 141 mg/dL (74-106); POTASSIUM - SERUM 3.5 mmol/L (3.5-5.1); SODIUM 140 mmol/L (136-145); eGFR NON AFRICAN AMERICAN 89 mL/min (90-120)
[2018-08-13 06:12] LABS: CALC OSMOLALITY 278 mosm/kg (275-300); UREA NITROGEN 6 mg/dL (7-18)
--- NOTE | 2018-08-13 08:05 | NUR ---
PT ALERT X 4. BREATH SOUNDS CLEAR BILAT. PICC LINE TO LEFT UPPER ARM, PATENT, DRESSING CDI. WOUND VAC TO RIGHT SHOULDER, NO OUTPUT. PT REPORTING PAIN OF 5/10, WILL MONITOR. BED LOW, CALL LIGHT IN REACH. NO OTHER NEEDS AT THIS TIME.
[2018-08-13 09:01] VITALS: BP 181/79
--- NOTE | 2018-08-13 12:36 | NUR ---
NUTRITION F/U CHART REVIEWED, PT VISIT. REPORTS TOLERATING DIABETIC DIET. STATES PO INTAKE IS "OKAY." WILL CONTINUE TO PROVIDE DIET, MONITOR INTAKE. RD FOLLOWING
[2018-08-13 13:05] VITALS: BP 102/63
[2018-08-13 17:15] VITALS: BP 172/72
[2018-08-13 20:00] VITALS: BP 186/85
--- NOTE | 2018-08-13 20:00 | NUR ---
ALMARQUIST SITTING UP IN BED AT BEDSIDE, WOUND VAC AND DRESSING INTACT TO RIGHT SHOULDER, SLING IN USE, SEE SHIFT ASSESSMENT ., CALL LIGHT IN REACH
[2018-08-14] VITALS (7 sets, daily range): BP systolic 148–175; BP diastolic 63–81
[2018-08-14 06:50] LABS: BASOPHILS 0.3 % (0-2); EOSINOPHILS 3.1 % (0-7); HEMATOCRIT 31.6 % (36.0-48.0); HEMOGLOBIN 10.7 g/dL (12-16); IMMATURE GRANULOCYTES 0.4 % (0-5); LYMPHOCYTES 41.2 % (15-50); MCH 28.4 pg (26.0-34.0); MCHC 33.9 g/dL (31.0-37.0); MCV 83.8 fL (80.0-100.0); MEAN PLATELET VOLUME 8.7 fL (7.4-10.4); MONOCYTES 9.6 % (2-11); NEUTROPHILS 45.4 % (40-80); PLATELET COUNT 297 10x3/uL (130-400); RBC 3.77 10x6/uL (4.00-5.40); RDW 12.6 % (11.5-14.5); WBC 7.6 10x3/uL (4.8-10.8)
[2018-08-14 07:20] LABS: ALBUMIN 2.4 g/dL (3.4-5.0); ALKALINE PHOSPHATASE 107 U/L (46-116); ALT (SGPT) 24 U/L (10-68); BILIRUBIN - TOTAL 0.44 mg/dL (0.2-1.3); CALC OSMOLALITY 277 mosm/kg (275-300); CALCIUM 9.7 mg/dL (8.5-10.1); CARBON DIOXIDE 26.8 mmol/L (21.0-32.0); CHLORIDE - SERUM 104 mmol/L (98-107); CREATININE - SERUM 0.7 mg/dL (0.6-1.3); GLUCOSE 125 mg/dL (74-106); POTASSIUM - SERUM 3.3 mmol/L (3.5-5.1); PROTEIN - SERUM 6.1 g/dL (6.4-8.2); SODIUM 139 mmol/L (136-145); UREA NITROGEN 10 mg/dL (7-18); eGFR NON AFRICAN AMERICAN 89 mL/min (90-120)
--- NOTE | 2018-08-14 07:55 | NUR ---
PT IS RESTING IN BED WITH EYES OPEN. PT WITH TEARS AND PT REPORTS A FEELING OF "DEPRESSION" DUE TO HOSPITALIZATION. PT REPORTS SLIGHT PAIN. WILL ADDRESS. SEE EMAR. PT DENIES PRESENCE OF DYSPNEA/N/V. RIGHT ARM IS IN SLING. WOUND VAC TO RIGHT SHOULDER. WOUND VAC IS ON AND WORKING PROPERLY. PT DENIES PRESENCE OF NUMBNESS/TINGLING IN EXTREMITY. BED IS IN THE LWOEST POSITION. CALL LIGHT AND BEDSIDE TABLE ARE WITHIN REACH. SIDE RAILS X 2. PT DENIES FURTHER NEEDS. WILL CONT TO MONITOR.
--- NOTE | 2018-08-14 13:42 | NUR ---
OT NOTE: PT SEEN THIS AM. VERY TEARFUL STATING THAT DR GRULLON IS GOING TO HAVE TO GO BACK IN FOR ANOTHER SURGERY. UNABLE TO PROVIDE EXTENSIVE INFORMATION FOR HER QUESTIONS. WILL CHECK AGAIN THIS AFTERNOON. SUMA CHOI, OTR/L
--- NOTE | 2018-08-14 20:00 | NUR ---
ALERT RESTING IN BED, ARON WRAP AND SLING IN USE TO RIGHT ARM, REPORTS MORE PAIN TO RIGHT SHOULDER TODAY, WOUND VAC DRESSIGN INTACT MINIMAL DRAINAGE NOTED IN CANISTER, SEE SHIFT ASSESSMENT, CALL LIGHT IN REACH
[2018-08-15 00:51] VITALS: BP 150/74
[2018-08-15 04:48] VITALS: BP 158/74
[2018-08-15 07:32] LABS: BASOPHILS 0.1 % (0-2); EOSINOPHILS 3.6 % (0-7); HEMATOCRIT 32.7 % (36.0-48.0); IMMATURE GRANULOCYTES 0.4 % (0-5); LYMPHOCYTES 43.5 % (15-50); MCH 28.2 pg (26.0-34.0); MCHC 33.6 g/dL (31.0-37.0); MCV 83.8 fL (80.0-100.0); MEAN PLATELET VOLUME 8.8 fL (7.4-10.4); MONOCYTES 9.8 % (2-11); NEUTROPHILS 42.6 % (40-80); PLATELET COUNT 304 10x3/uL (130-400); RDW 12.7 % (11.5-14.5); WBC 7.2 10x3/uL (4.8-10.8)
[2018-08-15 08:27] LABS: ALBUMIN 2.5 g/dL (3.4-5.0); ALKALINE PHOSPHATASE 111 U/L (46-116); ALT (SGPT) 24 U/L (10-68); BILIRUBIN - TOTAL 0.36 mg/dL (0.2-1.3); CALC OSMOLALITY 277 mosm/kg (275-300); CALCIUM 9.8 mg/dL (8.5-10.1); CARBON DIOXIDE 26.9 mmol/L (21.0-32.0); CHLORIDE - SERUM 104 mmol/L (98-107); CREATININE - SERUM 0.7 mg/dL (0.6-1.3); GLUCOSE 125 mg/dL (74-106); POTASSIUM - SERUM 3.5 mmol/L (3.5-5.1); PROTEIN - SERUM 6.1 g/dL (6.4-8.2); SODIUM 140 mmol/L (136-145); UREA NITROGEN 8 mg/dL (7-18); eGFR NON AFRICAN AMERICAN 89 mL/min (90-120)
[2018-08-15 08:52] VITALS: BP 176/78
[2018-08-15 12:18] VITALS: BP 135/54
[2018-08-15 18:08] LABS: AEROBE ID Final report (()); RESULT 1 Serratia marcescens (())
--- NOTE | 2018-08-15 19:55 | NUR ---
LYING IN BED. ALERT AND ORIENTED X4. SLING NOTED TO RT SHOULDER WITH NUBIA DRAIN WITH BLOODY DRAINAGE. WOUND VAC NOTED TO RT SHOULDER BUT NO DRAINAGE IN TUBING OR CANISTER. WOUND VAC TO 125 MMHG CONT SUCTION. RADIAL PULSES STRONG. O2 @ 2L/NC. 1/2 NS @ 75 ML/HR INFUSING IN LT UPPER ARM PICC. RATES PAIN 7 IN RT SHOULDER BUT WANTS TO WAIT UNTIL LATER TO TAKE PAIN MED. ASSISTED UP TO BR TO VOID AND THEN BACK TO BED. SR ELEVATED X2. CL IN REACH.
--- NOTE | 2018-08-15 21:00 | NUR ---
MEDICATED WITH OXY IR FOR C/O PAIN IN RT SHOULDER. CL IN REACH.
[2018-08-15 21:14] VITALS: BP 144/75
--- NOTE | 2018-08-16 01:47 | NUR ---
MEDICATED FOR C/O PAIN RT SHOULDER WITH OXY IR. CL IN REACH.
[2018-08-16 04:55] VITALS: BP 147/67
[2018-08-16 05:42] LABS: ALBUMIN 2.4 g/dL (3.4-5.0); ALKALINE PHOSPHATASE 106 U/L (46-116); ALT (SGPT) 21 U/L (10-68); BILIRUBIN - TOTAL 0.31 mg/dL (0.2-1.3); CALCIUM 9.4 mg/dL (8.5-10.1); CARBON DIOXIDE 26.9 mmol/L (21.0-32.0); CHLORIDE - SERUM 104 mmol/L (98-107); CREATININE - SERUM 0.7 mg/dL (0.6-1.3); GLUCOSE 169 mg/dL (74-106); PROTEIN - SERUM 5.2 g/dL (6.4-8.2); SODIUM 138 mmol/L (136-145); eGFR NON AFRICAN AMERICAN 89 mL/min (90-120)
[2018-08-16 05:43] LABS: CALC OSMOLALITY 280 mosm/kg (275-300); POTASSIUM - SERUM 4.4 mmol/L (3.5-5.1); UREA NITROGEN 14 mg/dL (7-18)
[2018-08-16 06:24] LABS: BASOPHILS 0.1 % (0-2); EOSINOPHILS 0.5 % (0-7); HEMATOCRIT 30.6 % (36.0-48.0); HEMOGLOBIN 10.3 g/dL (12-16); IMMATURE GRANULOCYTES 0.3 % (0-5); LYMPHOCYTES 24.5 % (15-50); MCHC 33.7 g/dL (31.0-37.0); MCV 83.2 fL (80.0-100.0); MEAN PLATELET VOLUME 10.1 fL (7.4-10.4); MONOCYTES 9.4 % (2-11); NEUTROPHILS 65.2 % (40-80); PLATELET COUNT 248 10x3/uL (130-400); RBC 3.68 10x6/uL (4.00-5.40); RDW 12.7 % (11.5-14.5)
[2018-08-16 06:27] LABS: WBC 10.3 10x3/uL (4.8-10.8)
--- NOTE | 2018-08-16 07:32 | NUR ---
PT RESTING IN BED WITH SPOUSE AT BEDSIDE. NO ACUTE DISTRESS NOTED. O2 @ 2L NC IN PLACE. DRESSING C/D/I TO RIGHT SHOULDER. WOUND VAC INTACT. SLING PRESENT TO RIGHT EXTREMITY. EXTREMITY WARM TO TOUCH. ABLE TO MOVE FINGERS. REPORTS PAIN 8/10 AT THIS TIME. EDUCATED PT TO TIME NEXT PAIN MEDICATION DUE. PT VOICES UNDERSTANDING. DENIES FURTHER NEEDS AT THIS TIME. CL WITHIN REACH. ENCOURAGED TO CALL WITH NEEDS. CONTINUE POC
[2018-08-16 08:17] LABS: PLATELET ESTIMATE NORMAL; PLATELET MORPHOLOGY PLT CLUMPS PRESENT; ROULEAUX OCC
[2018-08-16 09:38] VITALS: BP 154/71
--- NOTE | 2018-08-16 12:08 | OP ---
PATIENT NAME: FELIPE CHAUHAN MEDICAL RECORD: [id number] :51 LOCATION:D.MS Small4 ADMISSION DATE:08/08/18 SURGEON: HOSEA GRULLON DO DATE OF OPERATION: 08/15/2018 PROCEDURE PERFORMED: Right shoulder irrigation and debridement, removal of reverse total shoulder arthroplasty, and placement of antibiotic spacer. PREOPERATIVE DIAGNOSIS: Infected right shoulder, status post reverse total shoulder arthroplasty. POSTOPERATIVE DIAGNOSIS: Infected right shoulder, status post reverse total shoulder arthroplasty. INDICATIONS: Ms. Chauhan is a 62-year-old female who underwent right reverse total shoulder arthroplasty approximately 2 weeks ago. She came to the office a week after surgery with purulent fluid gushing out of her shoulder. She was directly admitted and washed out. She had a poly exchange and cultures were taken. The patient did well until yesterday when, on her incisional VAC, purulent material was noted to be coming out. She signed up for surgery today and decided to remove all of her implants. She is aware of the risks including further infection, need for further surgery, and continued use of antibiotics. She signed the consent. SURGEON: Hosea Grullon DO DESCRIPTION OF PROCEDURE: The patient was taken to the operative suite, laid in the supine position, given general anesthetic, and LMA was placed. She had been given antibiotics on the floor. The patient was then positioned in the beachchair position and the right upper extremity was prepped and draped in sterile fashion. Time-out was performed. Everyone was in agreement with correct side, site, patient, and procedure. The incision then began over the old incision. As soon as the incision was made, copious amounts of roselyn purulent fluid came gushing out of the shoulder. This was cultured with 3 different sets of cultures and then the shoulder was dislocated and the poly was popped off the humeral stem. The humeral stem was then loosened, essentially doing osteotomy of the proximal humerus to get the stem out due to the fact it was cemented. Once the cement was removed and the stem was removed, the glenoid was exposed and the glenosphere was removed and then the baseplate with the screws were removed as well. Then, 3 liters of normal saline was used to irrigate the shoulder and a ball and a Steinmann pin was formed. Ball of antibiotic cement with gentamicin was placed and Steinmann pin down the humeral shaft and this was put into place in the humerus. The wound was then irrigated some more and then closed with 3-0 Monocryl in an interrupted fashion and then 2-0 Prolene in a retention suture-type fashion on the skin. Then, a Prevena was placed. A drain was also placed, a quarter-inch drain, prior to this and tied down tight into place with 3-0 Monocryl. The Prevena was put on and held suction well. She was awakened and taken to recovery in stable condition. BLOOD LOSS: Approximately 400 mL. COMPLICATIONS: None. TRANSINT:[id number] Voice Confirmation ID: [id number] DOCUMENT ID: [id number] OPERATIVE REPORT [id number] FELIPE CHAUHAN,HOSEA Lopez DO at 1208 CC: [id number] DICTATION DATE: 08/15/18 1639 DIRECTOR SPEECH LANGUAGE: 08/15/18 1736 ADM IN [facility] [address] [place] [address]
[2018-08-16 13:55] VITALS: BP 153/71
[2018-08-16 17:34] VITALS: BP 147/60
[2018-08-17 01:08] VITALS: BP 137/61
[2018-08-17 05:21] VITALS: BP 150/70
[2018-08-17 06:48] LABS: BASOPHILS 0.3 % (0-2); EOSINOPHILS 2.6 % (0-7); HEMATOCRIT 31.5 % (36.0-48.0); HEMOGLOBIN 10.7 g/dL (12-16); IMMATURE GRANULOCYTES 0.3 % (0-5); LYMPHOCYTES 39.4 % (15-50); MCH 28.6 pg (26.0-34.0); MCV 84.2 fL (80.0-100.0); MEAN PLATELET VOLUME 8.9 fL (7.4-10.4); NEUTROPHILS 48.4 % (40-80); PLATELET COUNT 265 10x3/uL (130-400); RBC 3.74 10x6/uL (4.00-5.40); RDW 12.7 % (11.5-14.5)
[2018-08-17 06:49] LABS: WBC 7.6 10x3/uL (4.8-10.8)
[2018-08-17 07:08] LABS: ALBUMIN 2.5 g/dL (3.4-5.0); ANION GAP 11.8 mmol/L (8-16); BILIRUBIN - TOTAL 0.32 mg/dL (0.2-1.3); CALCIUM 9.9 mg/dL (8.5-10.1); CARBON DIOXIDE 24.7 mmol/L (21.0-32.0); PROTEIN - SERUM 5.9 g/dL (6.4-8.2)
[2018-08-17 07:09] LABS: CREATININE - SERUM 0.9 mg/dL (0.6-1.3); POTASSIUM - SERUM 3.5 mmol/L (3.5-5.1)
--- NOTE | 2018-08-17 07:43 | NUR ---
AAOX4. ON 3LPM VIA NC, SLING/WOUND VAC TO RIGHT SHOULDER, LEFT UPPER ARM PICC LINE INFUSING 1/2NS AT 75ML/HR, AMBULATORY, EVEN UNLABORED BREATHING, DENIES ANY OTHER NEEDS OR DISCOMFORTS, BED LOWERED AND LOCKED, CALL LIGHT WITHIN REACH. CPOC
--- NOTE | 2018-08-17 09:00 | NUR ---
REQUEST PRN PAIN MEDICATION FOR PAIN LEVEL 8/10 TO RIGHT SHOULDER. ADMINISTERED PRN VISTRIL AND OXYCODONE PER ORDER. DENIES ANY OTHER NEEDS OR DISCOMFORTS, BED LOWERED AND LOCKED, CALL LIGHT WITHIN REACH. CPOC
[2018-08-17 10:30] VITALS: BP 175/79
--- NOTE | 2018-08-17 10:30 | NUR ---
PAIN LEVEL 5/10. ELEVATED ARM ON PILLOW APPLIED ICE, DENIES ANY OTHER NEEDS OR DISCOMFORTS, BED LOWERED AND LOCKED, CALL LIGHT WITHIN REACH. CPOC
[2018-08-17 12:00] VITALS: BP 126/74
[2018-08-17 12:11] LABS: FUNGUS STAIN Final report (())
--- NOTE | 2018-08-17 14:55 | MORECARE ---
CASE MANAGEMENT DISCHARGE SUMMARY PATIENT: FELIPE CHAUHAN UNIT: [id number] ADM DATE: 08/08/18 AGE: 62 : 53 SEX: F ROOM/BED: D.2200 AUTHOR: STONEY SAINZ PHYSICIAN: REFERRING PHYSICIAN: FABIAN GRULLON DO DATE OF SERVICE: 08/17/18 Discharge Plan Patient Name: FELIPE CHAUHAN Facility: [facility]:[place] : 1955 Planned Disposition: Home or Self Care Anticipated Discharge Date: Discharge Date: Expected LOS: Initial Reviewer: [email or web address] Initial Review Date: 08/08/2018 Generated: 08/17/18 3:55 pm Comments DCP- Discharge Planning Updated by [email or web address]: Marissa Dunn on 08/17/18 1:[address] Patient will need IV abx. Spoke with patient about . OSEI with [facility]. Patient did not care what IV abx company she uses what ever is the most cost affective. I will send order and clinical to [facility]. I will send clinicals to [facility] also. CM to follow and assist with DC planning DCP- Discharge Planning Updated by [email or web address]: Marissa Dunn on 08/10/18 3:[address] Patient Name: FELIPE CHAUHAN Admission Status: Elective Accout number: [id number] Admission Date: 08-08-2018 : 1955 Admission Diagnosis: Attending: FABIAN GRULLON Current LOS: 2 Anticipated DC Date: Planned Disposition: Home or Self Care Primary Insurance: [employer] [facility] Discharge Planning Comments: CM met with patient to complete initial dc planning assessment. CM educated patient on the CM role and verbal consent given by patient to complete assessment. Patient lives at home with her where she is independent with her care. At discharge patient is unsure on what her discharge plan is. It will depend on what abx and how often she will receive them. CM discussed availability of home health, rehab services, and medical equipment. We will wait to see what the patient will need. Patient denied known discharge needs at this time. CM will continue to follow and will assist as needed with dc plans/needs. Horse Show Manager: Marissa Dunn DCP- Discharge Planning Updated by [email or web address]: Marissa Dunn on 08/10/18 2:[address] LYUBOV FROM [facility] CALLED TO FIND OUT A DISCHARGE PLAN, SHE ASKED ABOUT LTACH, IF THE PATIENT WAS GOING TO NEED ABX MORE THAT ONCE A DAY SHE ALSO SAID THAT [place], [place] AND [place] ARE IN-NETWORK. I WILL GET WITH MD TO SEE WHAT THEY ARE THINKING AND SPEAK WITH PATIENT LYUBOV CALL BACK NUMBER IS [phone] EXT # [phone] CM TO FOLLOW AND ASSIST WITH DC PLANNING DCPIA - Discharge Planning Initial Assessment Updated by [email or web address]: Marissa Dunn on 08/10/18 4:03 pm * Is the patient Alert and Oriented? Yes * How many steps to enter\exit or inside your home? STAIRS * PCP JESÚS * Pharmacy [facility] * Preadmission Environment Home with Family * ADLs Independent * Equipment None * List name and contact numbers for known caregivers / representatives who currently or will assist patient after discharge: ADRIANA [phone] * Verbal permission to speak to the caregivers and representatives has been obtained from the patient. Yes * Community resources currently utilized None * Additional services required to return to the preadmission environment? Yes * Can the patient safely return to the preadmission environment? Yes * Has this patient been hospitalized within the prior 30 days at any hospital? Yes External Providers External Provider: [facility] Next Contact Date: Service Request Date: Service Type: Resolution: Reviewer: Comments: External Provider: [facility] Next Contact Date: Service Request Date: Service Type: Resolution: Reviewer: Comments: Last DP export: 08/10/18 3:15 p Patient Name: FELIPE CHAUHAN Page 91704 at 1455 All edits/amendments must be made on the electronic document DICTATION DATE: 08/17/181454 COMPRESS TRUCKER: JOSE FRANCISCO 08/17/181454 RPT#: [id number] DC DATE: STATUS: ADM IN [facility] [address] [place] [address] END OF REPORT
--- NOTE | 2018-08-17 15:05 | MORECARE ---
CASE MANAGEMENT DISCHARGE SUMMARY PATIENT: FELIPE CHAUHAN UNIT: [id number] ADM DATE: 08/08/18 AGE: 62 : 53 SEX: F ROOM/BED: D.2201 AUTHOR: STONEY SAINZ PHYSICIAN: REFERRING PHYSICIAN: FABIAN GRULLON DO DATE OF SERVICE: 08/17/18 Discharge Plan Patient Name: FELIPE CHAUHAN Facility: [facility]:[place] : 1955 Planned Disposition: Home or Self Care Anticipated Discharge Date: Discharge Date: Expected LOS: Initial Reviewer: [id number] Initial Review Date: 08/08/2018 Generated: 08/17/18 4:05 pm Comments DCP- Discharge Planning Updated by [email or web address]: Marissa Dunn on 08/17/18 1:[address] Patient will need IV abx. Spoke with patient about . OSEI with [facility]. Patient did not care what IV abx company she uses what ever is the most cost affective. I will send order and clinical to [facility]. I will send clinicals to [facility] also. CM to follow and assist with DC planning DCP- Discharge Planning Updated by [email or web address]: Marissa Dunn on 08/10/18 3:[address] Patient Name: FELIPE CHAUHAN Admission Status: Elective Accout number: [id number] Admission Date: 08-08-2018 : 1955 Admission Diagnosis: Attending: FABIAN GRULLON Current LOS: 2 Anticipated DC Date: Planned Disposition: Home or Self Care Primary Insurance: [employer] [facility] Discharge Planning Comments: CM met with patient to complete initial dc planning assessment. CM educated patient on the CM role and verbal consent given by patient to complete assessment. Patient lives at home with her where she is independent with her care. At discharge patient is unsure on what her discharge plan is. It will depend on what abx and how often she will receive them. CM discussed availability of home health, rehab services, and medical equipment. We will wait to see what the patient will need. Patient denied known discharge needs at this time. CM will continue to follow and will assist as needed with dc plans/needs. Party Plan Selling Distributor: Marissa Dunn DCP- Discharge Planning Updated by [email or web address]: Marissa Dunn on 08/10/18 2:[address] LYUBOV FROM [facility] CALLED TO FIND OUT A DISCHARGE PLAN, SHE ASKED ABOUT LTACH, IF THE PATIENT WAS GOING TO NEED ABX MORE THAT ONCE A DAY SHE ALSO SAID THAT [place], [place] AND [place] ARE IN-NETWORK. I WILL GET WITH MD TO SEE WHAT THEY ARE THINKING AND SPEAK WITH PATIENT LYUBOV CALL BACK NUMBER IS [phone] EXT # [phone] CM TO FOLLOW AND ASSIST WITH DC PLANNING DCPIA - Discharge Planning Initial Assessment Updated by [email or web address]: Marissa Dunn on 08/10/18 4:03 pm * Is the patient Alert and Oriented? Yes * How many steps to enter\exit or inside your home? STAIRS * PCP JESÚS * Pharmacy [facility] * Preadmission Environment Home with Family * ADLs Independent * Equipment None * List name and contact numbers for known caregivers / representatives who currently or will assist patient after discharge: ADRIANA [phone] * Verbal permission to speak to the caregivers and representatives has been obtained from the patient. Yes * Community resources currently utilized None * Additional services required to return to the preadmission environment? Yes * Can the patient safely return to the preadmission environment? Yes * Has this patient been hospitalized within the prior 30 days at any hospital? Yes External Providers External Provider: [facility] Next Contact Date: Service Request Date: Service Type: Resolution: Reviewer: Comments: Coverage Notice Reviewer: [id number] - Marissa Dunn Notice Issued Date-Time: 08/17/2018 14:58 Notice Type: Patient Choice Letter Notice Delivered To: Patient Relationship to Patient: Interior Design Director Name: Delivery Method: - Olga Lidia Days: Prior Verbal Notification: Recipient Understood Notice: Yes Recipient Signature: Yes Med Rec Note Co-signed by Attending: Coverage Notice Comment: Last DP export: 08/17/18 1:55 p Patient Name: FELIPE CHAUHAN Page 10699 at 1505 All edits/amendments must be made on the electronic document DICTATION DATE: 08/17/18 1503 INVENTORY SPECIALIST MANAGER: JOSE FRANCISCO 08/17/18 1505 RPT#: [id number] DC DATE: STATUS: ADM IN [facility] [address] [place] [address] END OF REPORT
[2018-08-17 17:23] VITALS: BP 163/65
[2018-08-17 20:23] VITALS: BP 158/65
[2018-08-18 00:27] VITALS: BP 166/70
[2018-08-18 05:12] VITALS: BP 174/80
[2018-08-18 06:12] LABS: ALBUMIN 2.4 g/dL (3.4-5.0); ALKALINE PHOSPHATASE 104 U/L (46-116); ALT (SGPT) 18 U/L (10-68); BILIRUBIN - TOTAL 0.28 mg/dL (0.2-1.3); C-REACTIVE PROTEIN 1.1 mg/dL (0.0-0.9); CALC OSMOLALITY 273 mosm/kg (275-300); CALCIUM 9.1 mg/dL (8.5-10.1); CARBON DIOXIDE 25.3 mmol/L (21.0-32.0); CHLORIDE - SERUM 104 mmol/L (98-107); CREATININE - SERUM 0.7 mg/dL (0.6-1.3); GLUCOSE 124 mg/dL (74-106); POTASSIUM - SERUM 3.6 mmol/L (3.5-5.1); PROTEIN - SERUM 5.2 g/dL (6.4-8.2); SODIUM 137 mmol/L (136-145); eGFR NON AFRICAN AMERICAN 89 mL/min (90-120)
[2018-08-18 06:13] LABS: UREA NITROGEN 10 mg/dL (7-18)
[2018-08-18 06:18] LABS: BASOPHILS 0.3 % (0-2); EOSINOPHILS 3.4 % (0-7); HEMATOCRIT 29.1 % (36.0-48.0); HEMOGLOBIN 9.7 g/dL (12-16); IMMATURE GRANULOCYTES 0.5 % (0-5); LYMPHOCYTES 42.6 % (15-50); MCHC 33.3 g/dL (31.0-37.0); MCV 84.1 fL (80.0-100.0); MEAN PLATELET VOLUME 8.8 fL (7.4-10.4); MONOCYTES 9.5 % (2-11); NEUTROPHILS 43.7 % (40-80); PLATELET COUNT 234 10x3/uL (130-400); RBC 3.46 10x6/uL (4.00-5.40); RDW 12.7 % (11.5-14.5); WBC 6.4 10x3/uL (4.8-10.8)
[2018-08-18 07:13] LABS: ERYTHROCYTE SEDIMENTATION RATE 20 mm/hr (0-30)
[2018-08-18 09:41] VITALS: BP 161/69
[2018-08-18 12:59] VITALS: BP 166/90
[2018-08-18 16:28] VITALS: BP 170/71
--- NOTE | 2018-08-18 18:41 | NUR ---
AAOX.4 ON ROOM AIR, PICC LINE TO LEFT UPPER ARM, PATENT, INFUSING 1/2NS AT 30ML/HR, SLING/WOUND VAC/DEVOL DRAIN TO RIGHT SHOULDER, GOOD APPETITE, AMBULATED UNIT X2, DENIES ANY CURRENT NEEDS OR DISCOMFORTS, BED LOWERED AND LOCKED, CALL LIGHT WITHIN REACH. CPOC
--- NOTE | 2018-08-18 19:45 | NUR ---
PT SITTING UP IN BED WITHOUT DISTRESS. ALERT AND ORIENTED, DENIES PAIN AT THIS TIME. DAUGHTER AT BEDSIDE. IV LEFT UPPER ARM INFUSING 1/2NS @ 30. RIGHT ARM IN SLING WITH WOUND VAC/DAVOL DRAIN IN PLACE. DENIES NEEDS. REFUSES SCDS AT THIS TIME. CL IN REACH, WILL CTM
[2018-08-18 20:00] VITALS: BP 153/69
--- NOTE | 2018-08-18 21:30 | NUR ---
PT PAIN 10/06. GAVE OXY IR ORDERED. PROVIDED PT WITH NEW ICE PACK TO RIGHT SHOULDER. PT REQUESTED AND GIVEN DUGLAS CRACKERS WITH PB. DENIES OTHER NEEDS. WILL CTM
[2018-08-19] VITALS: BP 145/66
[2018-08-19 04:00] VITALS: BP 138/65
[2018-08-19 06:17] LABS: BASOPHILS 0.2 % (0-2); EOSINOPHILS 3.3 % (0-7); HEMOGLOBIN 10.3 g/dL (12-16); IMMATURE GRANULOCYTES 0.4 % (0-5); LYMPHOCYTES 39.5 % (15-50); MCH 28.5 pg (26.0-34.0); MCHC 34.3 g/dL (31.0-37.0); MCV 83.1 fL (80.0-100.0); MEAN PLATELET VOLUME 8.7 fL (7.4-10.4); MONOCYTES 9.7 % (2-11); NEUTROPHILS 46.9 % (40-80); PLATELET COUNT 223 10x3/uL (130-400); RBC 3.61 10x6/uL (4.00-5.40); RDW 12.8 % (11.5-14.5); WBC 5.7 10x3/uL (4.8-10.8)
[2018-08-19 06:28] LABS: CALC OSMOLALITY 279 mosm/kg (275-300); CALCIUM 9.9 mg/dL (8.5-10.1); CHLORIDE - SERUM 104 mmol/L (98-107); CREATININE - SERUM 0.6 mg/dL (0.6-1.3); GLUCOSE 146 mg/dL (74-106); POTASSIUM - SERUM 3.4 mmol/L (3.5-5.1); SODIUM 139 mmol/L (136-145); UREA NITROGEN 10 mg/dL (7-18); eGFR NON AFRICAN AMERICAN > 90 mL/min (90-120)
--- NOTE | 2018-08-19 07:58 | NUR ---
AAOX4. ON ROOM AIR, LEFT UPPER ARM PICC, INFUSING 1/2NS AT 30ML/HR. SLING AND WOUND VAC TO RIGHT SHOULDER. DRESSING TO RIGHT UPPER SHOULDER FROM REMOVAL OF DEVOL DRAIN BY DR. GRULLON THIS MORNING, DENIES ANY CURRENT NEEDS OR DISCOMFORTS, BED LOWERED AND LOCKED, CALL LIGHT WITHIN REACH. CPOC
[2018-08-19 09:19] VITALS: BP 187/78
[2018-08-19 12:55] VITALS: BP 197/76
[2018-08-19 17:03] VITALS: BP 182/72
--- NOTE | 2018-08-19 18:26 | NUR ---
AAOX4. ON ROOM AIR, PICC LINE TO LEFT UPPER ARM, INFUSING 1/2 NS AT 30ML/HR. SLING AND WOUND VAC TO RIGHT SHOULDER, TREATED FOR LOW POTASSSIUM OF 3.4. REDRAW WAS 3.7. PAIN MEDICATION ADMINISTERED TWO TIMES DURING SHIFT, DENIES ANY CURRENT NEEDS OR DISCOMFORTS, BED LOWERED AND LOCKED, CALL LIGHT WITHIN REACH. CPOC
--- NOTE | 2018-08-19 19:45 | NUR ---
PT SITTING UP IN BED WITHOUT DISTRESS. ALERT AND ORIENTED, STATES PAIN 5/10 IN RIGHT SHOULDER. WOUND VAC TO SHOULDER, DRESSING CDI. LEFT UPPER ARM PICC INFUSING 1/2 NS @ 30. DENIES NEEDS, REFUSES SCDS AT THIS TIME. CL IN REACH, WILL CTM
[2018-08-19 20:00] VITALS: BP 192/83
--- NOTE | 2018-08-19 21:00 | NUR ---
PT STATES PAIN 09/05, GAVE OXY ORDERED. BS 201, GAVE 12 UNITS PER SS. PROVIDED PT WITH SNACK OF DUGLAS CRACKERS AND PEANUT BUTTER. DENIES OTHER NEEDS. CL IN REACH, WILL CTM
[2018-08-20] VITALS: BP 193/71
--- NOTE | 2018-08-20 01:00 | NUR ---
PT STATES PAIN 6/10, REQUESTED AND GIVEN OXY ORDERED. CL IN REACH, WILL CTM
[2018-08-20 03:42] VITALS: BP 178/72
[2018-08-20 04:17] LABS: BASOPHILS 0.1 % (0-2); EOSINOPHILS 3.5 % (0-7); HEMOGLOBIN 10.7 g/dL (12-16); IMMATURE GRANULOCYTES 0.4 % (0-5); LYMPHOCYTES 43.8 % (15-50); MCH 27.9 pg (26.0-34.0); MCHC 33.4 g/dL (31.0-37.0); MCV 83.6 fL (80.0-100.0); MEAN PLATELET VOLUME 8.9 fL (7.4-10.4); MONOCYTES 9.1 % (2-11); NEUTROPHILS 43.1 % (40-80); PLATELET COUNT 256 10x3/uL (130-400); RBC 3.83 10x6/uL (4.00-5.40)
[2018-08-20 04:27] LABS: WBC 8.2 10x3/uL (4.8-10.8)
[2018-08-20 04:53] LABS: CALC OSMOLALITY 278 mosm/kg (275-300); CALCIUM 10.2 mg/dL (8.5-10.1); CARBON DIOXIDE 29.2 mmol/L (21.0-32.0); CHLORIDE - SERUM 104 mmol/L (98-107); CREATININE - SERUM 0.7 mg/dL (0.6-1.3); GLUCOSE 127 mg/dL (74-106); POTASSIUM - SERUM 3.6 mmol/L (3.5-5.1); SODIUM 139 mmol/L (136-145); UREA NITROGEN 11 mg/dL (7-18); eGFR NON AFRICAN AMERICAN 89 mL/min (90-120)
--- NOTE | 2018-08-20 07:53 | NUR ---
AWAKE AND ALERT. ORIENTED X3. NO C/O AT THIS TIME. LUNGS ARE CLEAR BILATERALLY, NO COUGH NOTED. SKIN IS INTACT WITHOUT REDNESS EXCEPT INCISION TO RIGHT SHOULDER WHICH HAS A WOUND VAC IN PLACE WITH SCANT OUTPUT. LEFT UPPER ARM PICC IS PATENT WITHOUT REDNESS AT INSERTION SITE. DENIES NEEDS. AT BEDSIDE.
[2018-08-20 09:01] VITALS: BP 177/80
[2018-08-20] MEDS ORDERED: MAXIPIME 2 GM/D52 G1 IV (09:07)
[2018-08-20] MEDS ORDERED: VISTARIL50 MG PO (09:08)
[2018-08-20] MEDS ORDERED: OXYCODONE HCL5 M1 PO (09:08)
--- NOTE | 2018-08-20 09:59 | NUR ---
REQUESTED AND GIVEN 10MG OXY PO FOR C/O RIGHT SHOULDER PAIN. WILL MONITOR.
[2018-08-20] MEDS ORDERED: ROCEPHIN 1 GM/D51 G1 IV (10:50)
--- NOTE | 2018-08-20 11:03 | NUR ---
Prevena dressing applied to right shoulder by Dr. Lucero. Instructions on use provided by Dr. Lucero to pt and spouse. Ulta vac serial # [id number] placed in soiled utility for kci brain picker.
--- NOTE | 2018-08-20 11:09 | MORECARE ---
CASE MANAGEMENT DISCHARGE SUMMARY PATIENT: FELIPE CHAUHAN UNIT: [id number] ADM DATE: 08/08/18 AGE: 62 : 53 SEX: F ROOM/BED: D.2203 AUTHOR: STONEY SAINZ PHYSICIAN: REFERRING PHYSICIAN: FABIAN GRULLON DO DATE OF SERVICE: 08/20/18 Discharge Plan Patient Name: FELIPE CHAUHAN Facility: [facility]:[place] : 1955 Planned Disposition: Home Health Service Anticipated Discharge Date: Discharge Date: Expected LOS: Initial Reviewer: [id number] Initial Review Date: 08/08/2018 Generated: 08/20/18 12:09 pm Comments DCP- Discharge Planning Updated by [id number]: Marissa Dunn on 08/17/18 1:[address] Patient will need IV abx. Spoke with patient about . OSEI with [facility]. Patient did not care what IV abx company she uses what ever is the most cost affective. I will send order and clinical to [facility]. I will send clinicals to [facility] also. CM to follow and assist with DC planning DCP- Discharge Planning Updated by [email or web address]: Marissa Dunn on 08/10/18 3:[address] Patient Name: FELIPE CHAUHAN Admission Status: Elective Accout number: [id number] Admission Date: 08-08-2018 : 1955 Admission Diagnosis: Attending: FABIAN GRULLON Current LOS: 2 Anticipated DC Date: Planned Disposition: Home or Self Care Primary Insurance: [employer] [facility] Discharge Planning Comments: CM met with patient to complete initial dc planning assessment. CM educated patient on the CM role and verbal consent given by patient to complete assessment. Patient lives at home with her where she is independent with her care. At discharge patient is unsure on what her discharge plan is. It will depend on what abx and how often she will receive them. CM discussed availability of home health, rehab services, and medical equipment. We will wait to see what the patient will need. Patient denied known discharge needs at this time. CM will continue to follow and will assist as needed with dc plans/needs. Wood Finisher Apprentice: Marissa Dunn DCP- Discharge Planning Updated by [email or web address]: Marissa Dunn on 08/10/18 2:[address] LYUBOV FROM [facility] CALLED TO FIND OUT A DISCHARGE PLAN, SHE ASKED ABOUT LTACH, IF THE PATIENT WAS GOING TO NEED ABX MORE THAT ONCE A DAY SHE ALSO SAID THAT [place], [facility] [place] AND [place] ARE IN-NETWORK. I WILL GET WITH MD TO SEE WHAT THEY ARE THINKING AND SPEAK WITH PATIENT LYUBOV CALL BACK NUMBER IS [phone] EXT # [phone] CM TO FOLLOW AND ASSIST WITH DC PLANNING DCPIA - Discharge Planning Initial Assessment Updated by [email or web address]: Marissa Dunn on 08/10/18 4:03 pm * Is the patient Alert and Oriented? Yes * How many steps to enter\exit or inside your home? STAIRS * PCP JESÚS * Pharmacy [facility] * Preadmission Environment Home with Family * ADLs Independent * Equipment None * List name and contact numbers for known caregivers / representatives who currently or will assist patient after discharge: ADRIANA [phone] * Verbal permission to speak to the caregivers and representatives has been obtained from the patient. Yes * Community resources currently utilized None * Additional services required to return to the preadmission environment? Yes * Can the patient safely return to the preadmission environment? Yes * Has this patient been hospitalized within the prior 30 days at any hospital? Yes Coverage Notice Reviewer: [id number] - Marissa Dunn Notice Issued Date-Time: 08/17/2018 14:58 Notice Type: Patient Choice Letter Notice Delivered To: Patient Relationship to Patient: Beef Selector Name: Delivery Method: - Olga Lidia Days: Prior Verbal Notification: Recipient Understood Notice: Yes Recipient Signature: Yes Med Rec Note Co-signed by Attending: Coverage Notice Comment: Last DP export: 08/17/18 2:05 p Patient Name: FELIPE CHAUHAN Page 21955 at 1109 All edits/amendments must be made on the electronic document DICTATION DATE: 08/20/18 110 CADD OPERATOR: JOSE FRANCISCO 08/20/181108 RPT#: [id number] DC DATE: STATUS: ADM IN [facility] [address] [place] [address] END OF REPORT
--- NOTE | 2018-08-20 11:47 | MORECARE ---
CASE MANAGEMENT DISCHARGE SUMMARY PATIENT: FELIPE CHAUHAN UNIT: [id number] ADM DATE: 08/08/18 AGE: 62 : 53 SEX: F ROOM/BED: D.2208 AUTHOR: STONEY SAINZ PHYSICIAN: REFERRING PHYSICIAN: FABIAN GRULLON DO DATE OF SERVICE: 08/20/18 Discharge Plan Patient Name: FELIPE CHAUHAN Facility: [facility]:[place] : 1955 Planned Disposition: Home Health Service Anticipated Discharge Date: Discharge Date: Expected LOS: Initial Reviewer: [id number] Initial Review Date: 08/08/2018 Generated: 08/20/18 12:47 pm Comments DCP- Discharge Planning Updated by [email or web address]: Phyllis Honeycutt on 08/20/18 10:[address] Patient Name: FELIPE CHAUHAN Admission Status: Elective Accout number: [id number] Admission Date: 08-08-2018 : 1955 Admission Diagnosis:INFECT/INFLM REACTION DUE TO OTH INTERNAL JOINT PROSTH, Attending: FABIAN GRULLON Current LOS: 12 Anticipated DC Date: Planned Disposition: Home Health Service Primary Insurance: [employer] [facility] Discharge Planning Comments: [place] TO COME AROUND 1330 TODAY, [facility] CONTACTED AND DOCUMENTS FAXED. WAITING FOR CALLBACK FROM [facility], WAITING FOR INS AUTH. Electrical Integrator: Phyllis Honeycutt DCP- Discharge Planning Updated by [email or web address]: Marissa Dunn on 08/17/18 1:[address] Patient will need IV abx. Spoke with patient about . OSEI with [facility]. Patient did not care what IV abx company she uses what ever is the most cost affective. I will send order and clinical to [facility]. I will send clinicals to [facility] also. CM to follow and assist with DC planning DCP- Discharge Planning Updated by [email or web address]: Marissa Dunn on 08/10/18 3:[address] Patient Name: FELIPE CHAUHAN Admission Status: Elective Accout number: [id number] Admission Date: 08-08-2018 : 1955 Admission Diagnosis: Attending: FABIAN GRULLON Current LOS: 2 Anticipated DC Date: Planned Disposition: Home or Self Care Primary Insurance: [employer] FEP Discharge Planning Comments: CM met with patient to complete initial dc planning assessment. CM educated patient on the CM role and verbal consent given by patient to complete assessment. Patient lives at home with her where she is independent with her care. At discharge patient is unsure on what her discharge plan is. It will depend on what abx and how often she will receive them. CM discussed availability of home health, rehab services, and medical equipment. We will wait to see what the patient will need. Patient denied known discharge needs at this time. CM will continue to follow and will assist as needed with dc plans/needs. Electrical Integrator: Marissa Dunn DCP- Discharge Planning Updated by [email or web address]: Marissa Dunn on 08/10/18 2:[address] LYUBOV FROM [facility] CALLED TO FIND OUT A DISCHARGE PLAN, SHE ASKED ABOUT LTACH, IF THE PATIENT WAS GOING TO NEED ABX MORE THAT ONCE A DAY SHE ALSO SAID THAT [facility]IA, CAN[facility] CHARLES AND [place] ARE IN-NETWORK. I WILL GET WITH MD TO SEE WHAT THEY ARE THINKING AND SPEAK WITH PATIENT LYUBOV CALL BACK NUMBER IS [phone] EXT # [phone] CM TO FOLLOW AND ASSIST WITH DC PLANNING DCPIA - Discharge Planning Initial Assessment Updated by [email or web address]: Marissa Dunn on 08/10/18 4:03 pm * Is the patient Alert and Oriented? Yes * How many steps to enter\exit or inside your home? STAIRS * PCP JESÚS * [facility]acy [facility] * Preadmission Environment Home with Family * ADLs Independent * Equipment None * List name and contact numbers for known caregivers / representatives who currently or will assist patient after discharge: ADRIANA [phone] * Verbal permission to speak to the caregivers and representatives has been obtained from the patient. Yes * Community resources currently utilized None * Additional services required to return to the preadmission environment? Yes * Can the patient safely return to the preadmission environment? Yes * Has this patient been hospitalized within the prior 30 days at any hospital? Yes Coverage Notice Reviewer: [id number] - Marissa Dunn Notice Issued Date-Time: 08/17/2018 14:58 Notice Type: Patient Choice Letter Notice Delivered To: Patient Relationship to Patient: Electrical Fitter Name: Delivery Method: - Olga Lidia Days: Prior Verbal Notification: Recipient Understood Notice: Yes Recipient Signature: Yes Med Rec Note Co-signed by Attending: Coverage Notice Comment: Last DP export: 08/20/18 10:09 a Patient Name: FELIPE CHAUHAN Page 69315 at 1147 All edits/amendments must be made on the electronic document DICTATION DATE: 08/20/18 1146 REGISTRATION CLERK: JOSE FRANCISCO 08/20/18 1146 RPT#: [id number] DC DATE: STATUS: ADM IN [facility] [address] [place] [address] END OF REPORT
--- NOTE | 2018-08-20 12:30 | NUR ---
FSBS 136. NO COVERAGE REQUIRED. LUNCH SERVED IN ROOM.
--- NOTE | 2018-08-20 12:57 | MORECARE ---
CASE MANAGEMENT DISCHARGE SUMMARY PATIENT: FELIPE CHAUHAN UNIT: [id number] ADM DATE: 08/08/18 AGE: 62 : 51 SEX: F ROOM/BED: [facility] AUTHOR: EMELI,DOC PHYSICIAN: REFERRING PHYSICIAN: FABIAN GRULLON DO DATE OF SERVICE: 08/20/18 Discharge Plan Patient Name: FELIPE CHAUHAN Facility: [facility]:[place] : 1955 Planned Disposition: Home Health Service Anticipated Discharge Date: Discharge Date: Expected LOS: Initial Reviewer: [id number] Initial Review Date: 08/08/2018 Generated: 08/20/18 1:57 pm Comments DCP- Discharge Planning Updated by [email or web address]: Phyllis Honeycutt on 08/20/18 10:[address] Patient Name: FELIPE CHAUHAN Admission Status: Elective Accout number: [id number] Admission Date: 08-08-2018 : 1955 Admission Diagnosis:INFECT/INFLM REACTION DUE TO OTH INTERNAL JOINT PROSTH, Attending: FABIAN GRULLON Current LOS: 12 Anticipated DC Date: Planned Disposition: Home Health Service Primary Insurance: Chloe + Isabel [facility] Discharge Planning Comments: [place] TO COME AROUND 1330 TODAY, [facility] CONTACTED AND DOCUMENTS FAXED. WAITING FOR CALLBACK FROM [facility], WAITING FOR INS AUTH. Hand Fabric Cutter: Phyllis Honeycutt DCP- Discharge Planning Updated by [id number]: Marissa Dunn on 08/17/18 1:[address] Patient will need IV abx. Spoke with patient about . OSEI with [facility]. Patient did not care what IV abx company she uses what ever is the most cost affective. I will send order and clinical to [facility]. I will send clinicals to [facility] also. CM to follow and assist with DC planning DCP- Discharge Planning Updated by [email or web address]: Marissa Dunn on 08/10/18 3:[address] Patient Name: FELIPE CHAUHAN Admission Status: Elective Accout number: [id number] Admission Date: 08-08-2018 : 1955 Admission Diagnosis: Attending: FABIAN GRULLON Current LOS: 2 Anticipated DC Date: Planned Disposition: Home or Self Care Primary Insurance: Chloe + Isabel FEP Discharge Planning Comments: CM met with patient to complete initial dc planning assessment. CM educated patient on the CM role and verbal consent given by patient to complete assessment. Patient lives at home with her where she is independent with her care. At discharge patient is unsure on what her discharge plan is. It will depend on what abx and how often she will receive them. CM discussed availability of home health, rehab services, and medical equipment. We will wait to see what the patient will need. Patient denied known discharge needs at this time. CM will continue to follow and will assist as needed with dc plans/needs. Hand Fabric Cutter: Marissa Dunn DCP- Discharge Planning Updated by [email or web address]: Marissa Dunn on 08/10/18 2:[address] LYUBOV FROM [facility] CALLED TO FIND OUT A DISCHARGE PLAN, SHE ASKED ABOUT LTACH, IF THE PATIENT WAS GOING TO NEED ABX MORE THAT ONCE A DAY SHE ALSO SAID THAT [facility], [facility] AND [facility] ARE IN-NETWORK. I WILL GET WITH MD TO SEE WHAT THEY ARE THINKING AND SPEAK WITH PATIENT LYUBOV CALL BACK NUMBER IS [phone] EXT # [phone] CM TO FOLLOW AND ASSIST WITH DC PLANNING DCPIA - Discharge Planning Initial Assessment Updated by [email or web address]: Marissa Dunn on 08/10/18 4:03 pm * Is the patient Alert and Oriented? Yes * How many steps to enter\exit or inside your home? STAIRS * PCP JESÚS * [facility]acy [facility] * Preadmission Environment Home with Family * ADLs Independent * Equipment None * List name and contact numbers for known caregivers / representatives who currently or will assist patient after discharge: ADRIANA [phone] * Verbal permission to speak to the caregivers and representatives has been obtained from the patient. Yes * Community resources currently utilized None * Additional services required to return to the preadmission environment? Yes * Can the patient safely return to the preadmission environment? Yes * Has this patient been hospitalized within the prior 30 days at any hospital? Yes Coverage Notice Reviewer: [id number] - Marissa Dunn Notice Issued Date-Time: 08/17/2018 14:58 Notice Type: Patient Choice Letter Notice Delivered To: Patient Relationship to Patient: Program Development Specialist Name: Delivery Method: - Olga Lidia Days: Prior Verbal Notification: Recipient Understood Notice: Yes Recipient Signature: Yes Med Rec Note Co-signed by Attending: Coverage Notice Comment: Last DP export: 08/20/18 10:47 a Patient Name: FELIPE CHAUHAN Page 31164 at 1257 All edits/amendments must be made on the electronic document DICTATION DATE: 08/20/181255 SUPERVISOR DATA PROCESSING: JOSE FRANCISCO 08/20/18 1256 RPT#: [id number] DC DATE: STATUS: ADM IN [facility] [address] [place] [address] END OF REPORT
[2018-08-20 13:18] VITALS: BP 164/73
--- NOTE | 2018-08-20 15:49 | MORECARE ---
CASE MANAGEMENT DISCHARGE SUMMARY PATIENT: FELIPE CHAUHAN UNIT: [id number] ADM DATE: 08/08/18 AGE: 62 : 51 SEX: F ROOM/BED: D.2205 AUTHOR: STONEY SAINZ PHYSICIAN: REFERRING PHYSICIAN: FABIAN GRULLON DO DATE OF SERVICE: 08/20/18 Discharge Plan Patient Name: FELIPE CHAUHAN Facility: [facility]:[place] : 1955 Planned Disposition: Home Health Service Anticipated Discharge Date: Discharge Date: Expected LOS: Initial Reviewer: [email or web address] Initial Review Date: 08/08/2018 Generated: 08/20/18 4:49 pm Comments DCP- Discharge Planning Updated by [email or web address]: Phyllis Honeycutt on 08/20/18 2:[address] Patient Name: FELIPE CHAUHAN Admission Status: Elective Accout number: [id number] Admission Date: 08-08-2018 : 1955 Admission Diagnosis:INFECT/INFLM REACTION DUE TO OTH INTERNAL JOINT PROSTH, Attending: FABIAN GRULLON Current LOS: 12 Anticipated DC Date: Planned Disposition: Home Health Service Primary Insurance: [employer] [facility] Discharge Planning Comments: [place] TO COME AROUND 1330 TODAY, [facility] CONTACTED AND DOCUMENTS FAXED. WAITING FOR CALLBACK FROM [facility], WAITING FOR INS AUTH. Children'S Minister: Phyllis Honeycutt Appended by Phyllis Honeycutt on 08/20/2018 15:46 CDT: [facility] WILL SEE TOMORROW PER PHYLLIS AT [facility]. DCP- Discharge Planning Updated by [id number]: Marissa Dunn on 08/17/18 1:[address] Patient will need IV abx. Spoke with patient about . OSEI with [facility]. Patient did not care what IV abx company she uses what ever is the most cost affective. I will send order and clinical to [facility]. I will send clinicals to [facility] also. CM to follow and assist with DC planning DCP- Discharge Planning Updated by [id number]: Marissa Dunn on 08/10/18 3:[address] Patient Name: FELIPE CHAUHAN Admission Status: Elective Accout number: [id number] Admission Date: 08-08-2018 : 1955 Admission Diagnosis: Attending: FABIAN GRULLON Current LOS: 2 Anticipated DC Date: Planned Disposition: Home or Self Care Primary Insurance: Renew[employer] Funding [facility] Discharge Planning Comments: CM met with patient to complete initial dc planning assessment. CM educated patient on the CM role and verbal consent given by patient to complete assessment. Patient lives at home with her where she is independent with her care. At discharge patient is unsure on what her discharge plan is. It will depend on what abx and how often she will receive them. CM discussed availability of home health, rehab services, and medical equipment. We will wait to see what the patient will need. Patient denied known discharge needs at this time. CM will continue to follow and will assist as needed with dc plans/needs. Children'S Minister: Marissa uDnn DCP- Discharge Planning Updated by [email or web address]: Marissa Dunn on 08/10/18 2:[address] LYUBOV FROM [facility] CALLED TO FIND OUT A DISCHARGE PLAN, SHE ASKED ABOUT LTACH, IF THE PATIENT WAS GOING TO NEED ABX MORE THAT ONCE A DAY SHE ALSO SAID THAT [facility], [facility] AND [facility] ARE IN-NETWORK. I WILL GET WITH MD TO SEE WHAT THEY ARE THINKING AND SPEAK WITH PATIENT LYUBOV CALL BACK NUMBER IS [phone] EXT # [phone] CM TO FOLLOW AND ASSIST WITH DC PLANNING DCPIA - Discharge Planning Initial Assessment Updated by [email or web address]: Marissa Dunn on 08/10/18 4:03 pm * Is the patient Alert and Oriented? Yes * How many steps to enter\exit or inside your home? STAIRS * PCP JESÚS * [facility]acy [facility] * Preadmission Environment Home with Family * ADLs Independent * Equipment None * List name and contact numbers for known caregivers / representatives who currently or will assist patient after discharge: ADRIANA [phone] * Verbal permission to speak to the caregivers and representatives has been obtained from the patient. Yes * Community resources currently utilized None * Additional services required to return to the preadmission environment? Yes * Can the patient safely return to the preadmission environment? Yes * Has this patient been hospitalized within the prior 30 days at any hospital? Yes Coverage Notice Reviewer: [id number] - Marissa Dunn Notice Issued Date-Time: 08/17/2018 14:58 Notice Type: Patient Choice Letter Notice Delivered To: Patient Relationship to Patient: Veneer Stock Layer Name: Delivery Method: - Olga Lidia Days: Prior Verbal Notification: Recipient Understood Notice: Yes Recipient Signature: Yes Med Rec Note Co-signed by Attending: Coverage Notice Comment: Last DP export: 08/20/18 11:57 a Patient Name: FELIPE CHAUHAN Page [phone] at 1549 All edits/amendments must be made on the electronic document DICTATION DATE: 08/20/18 1548 BINDING END STITCHER: JOSE FRANCISCO 08/20/18 1548 RPT#: [id number] DC DATE: STATUS: ADM IN [facility] [address] [place] [address] END OF REPORT
--- NOTE | 2018-08-20 16:30 | NUR ---
DISCHARGED TO HOME AMBULATORY WITH FAMILY. DISCHARGE INSTRUCTIONS GIVEN BOTH VERBALLY AND WRITTEN. ALL QUESTIONS ANSWERED. PATIENT VERBALLIZED UNDERSTANDING OF SAME. NEEDED PRESCRIPTIONS GIVEN TO PATIENT. ALL BELONGINGS WITH PATIENT. PICC LINE FLUSHED PRIOR TO DISCHARGE HOME.
[2018-08-20 16:45] VITALS: BP 190/84
--- NOTE | 2018-08-21 08:45 | MORECARE ---
CASE MANAGEMENT DISCHARGE SUMMARY PATIENT: FELIPE CHAUHAN UNIT: [id number] ADM DATE: 08/08/18 AGE: 62 : 51 SEX: F ROOM/BED: D.2200 AUTHOR: STONEY SAINZ PHYSICIAN: REFERRING PHYSICIAN: FABIAN GRULLON DO DATE OF SERVICE: 08/21/18 Discharge Plan Patient Name: FELIPE CHAUHAN Facility: [facility]:[place] : 1955 Planned Disposition: Home Health Service Anticipated Discharge Date: Discharge Date: 08/20/2018 Expected LOS: Initial Reviewer: [id number] Initial Review Date: 08/08/2018 Generated: 08/21/18 9:45 am Comments DCP- Discharge Planning Updated by [email or web address]: Phyllis Honeycutt on 08/20/18 2:[address] Patient Name: FELIPE CHAUHAN Admission Status: Elective Accout number: [id number] Admission Date: 08-08-2018 : 1955 Admission Diagnosis:INFECT/INFLM REACTION DUE TO OTH INTERNAL JOINT PROSTH, Attending: FABIAN GRULLON Current LOS: 12 Anticipated DC Date: Planned Disposition: Home Health Service Primary Insurance: [employer] [facility] Discharge Planning Comments: [place] TO COME AROUND 1330 TODAY, [facility] CONTACTED AND DOCUMENTS FAXED. WAITING FOR CALLBACK FROM [facility], WAITING FOR INS AUTH. Environmental Programs Manager: Phyllis Honeycutt Appended by Phyllis Honeycutt on 08/20/2018 15:46 CDT: [facility] WILL SEE TOMORROW PER PHYLLIS AT [facility]. DCP- Discharge Planning Updated by [email or web address]: Marissa Dunn on 08/17/18 1:[address] Patient will need IV abx. Spoke with patient about . OSEI with [facility]. Patient did not care what IV abx company she uses what ever is the most cost affective. I will send order and clinical to [facility]. I will send clinicals to [facility] also. CM to follow and assist with DC planning DCP- Discharge Planning Updated by [email or web address]: Marissa Dunn on 08/10/18 3:[address] Patient Name: FELIPE K TIEN Admission Status: Elective Accout number: [id number] Admission Date: 08-08-2018 : 1955 Admission Diagnosis: Attending: FABIAN GRULLON Current LOS: 2 Anticipated DC Date: Planned Disposition: Home or Self Care Primary Insurance: [email or web address] [facility] Discharge Planning Comments: CM met with patient to complete initial dc planning assessment. CM educated patient on the CM role and verbal consent given by patient to complete assessment. Patient lives at home with her where she is independent with her care. At discharge patient is unsure on what her discharge plan is. It will depend on what abx and how often she will receive them. CM discussed availability of home health, rehab services, and medical equipment. We will wait to see what the patient will need. Patient denied known discharge needs at this time. CM will continue to follow and will assist as needed with dc plans/needs. Environmental Programs Manager: Marissa Dunn DCP- Discharge Planning Updated by [id number]: Marissa Dunn on 08/10/18 2:[address] LYUBOV FROM [facility] CALLED TO FIND OUT A DISCHARGE PLAN, SHE ASKED ABOUT LTACH, IF THE PATIENT WAS GOING TO NEED ABX MORE THAT ONCE A DAY SHE ALSO SAID THAT [facility], [facility] AND [place] ARE IN-NETWORK. I WILL GET WITH MD TO SEE WHAT THEY ARE THINKING AND SPEAK WITH PATIENT LYUBOV CALL BACK NUMBER IS [phone] EXT # [phone] CM TO FOLLOW AND ASSIST WITH DC PLANNING DCPIA - Discharge Planning Initial Assessment Updated by [email or web address]: Marissa Dunn on 08/10/18 4:03 pm * Is the patient Alert and Oriented? Yes * How many steps to enter\exit or inside your home? STAIRS * PCP JESÚS * Pharmacy [facility] * Preadmission Environment Home with Family * ADLs Independent * Equipment None * List name and contact numbers for known caregivers / representatives who currently or will assist patient after discharge: ADRIANA [phone] * Verbal permission to speak to the caregivers and representatives has been obtained from the patient. Yes * Community resources currently utilized None * Additional services required to return to the preadmission environment? Yes * Can the patient safely return to the preadmission environment? Yes * Has this patient been hospitalized within the prior 30 days at any hospital? Yes Coverage Notice Reviewer: [id number] - Marissa Dunn Notice Issued Date-Time: 08/17/2018 14:58 Notice Type: Patient Choice Letter Notice Delivered To: Patient Relationship to Patient: Student Outreach Coordinator Name: Delivery Method: - Olga Lidia Days: Prior Verbal Notification: Recipient Understood Notice: Yes Recipient Signature: Yes Med Rec Note Co-signed by Attending: Coverage Notice Comment: Last DP export: 08/20/18 2:49 p Patient Name: FELIPE CHAUHAN Page [id number] at 0845 All edits/amendments must be made on the electronic document DICTATION DATE: 08/21/1844 WHEEL MOLDER: JOSE FRANCISCO 08/21/18 0844 RPT#: [id number] DC DATE:08/20/18 STATUS: DIS IN [facility] [address] [place] [address] END OF REPORT
[2018-09-06 14:10] LABS: FUNGUS MYCOLOGY CULTURE Final report (())
[2018-09-12 14:09] LABS: FUNGUS MYCOLOGY CULTURE Final report (())
== END 2018-08-20 16:30 | disposition home or self-care (01) | DRG 508 ==
LOC: D.MS 11:05 → D.SDCHOLD 08-20 12:56 → D.MS 08-20 12:58
PROVIDERS: Family Medicine; Internal Medicine Nephrology; Student in an Organized Health Care Education/Training Program; ADMIT Orthopaedic Surgery; ATTEND Orthopaedic Surgery
PROC: 0RUJ0JZ Supplement Right Shoulder Joint with Synthetic Substitute, Open Approach (ICD-10-PCS; principal; 2018-08-08 14:00)
PROC: 05HY33Z Insertion of Infusion Device into Upper Vein, Percutaneous Approach (ICD-10-PCS; 2018-08-10)
DX: T84.59XA Infection and inflammatory reaction due to other internal joint prosthesis, initial encounter (principal); I10 Essential (primary) hypertension

== ENCOUNTER → 2018-08-27 13:28 | Outpatient (CLI) | payer BC ==
[2018-08-09 12:13] VITALS: BMI 30.4
[~2018-08-27 13:28] MED LIST changes: +MAXIPIME 2 GM/D52 G1 IV; +ROCEPHIN 1 GM/D51 G1 IV
[2018-08-27 13:55] LABS: BASOPHILS 0.2 % (0-2); EOSINOPHILS 3.2 % (0-7); HEMATOCRIT 35.5 % (36.0-48.0); HEMOGLOBIN 11.7 g/dL (12-16); IMMATURE GRANULOCYTES 0.2 % (0-5); LYMPHOCYTES 29.6 % (15-50); MCV 84.9 fL (80.0-100.0); MEAN PLATELET VOLUME 9.8 fL (7.4-10.4); MONOCYTES 10.4 % (2-11); NEUTROPHILS 56.4 % (40-80); PLATELET COUNT 237 10x3/uL (130-400); RBC 4.18 10x6/uL (4.00-5.40); RDW 13.5 % (11.5-14.5); WBC 5.3 10x3/uL (4.8-10.8)
[2018-08-27 14:09] LABS: C-REACTIVE PROTEIN 0.4 mg/dL (0.0-0.9); CREATININE - SERUM 0.8 mg/dL (0.6-1.3)
[2018-08-27 15:05] LABS: ERYTHROCYTE SEDIMENTATION RATE 2 mm/hr (0-30)
== END | disposition home or self-care (01) ==
LOC: D.LABREF 13:28
PROVIDERS: ATTEND Orthopaedic Surgery
DX: T84.59XA Infection and inflammatory reaction due to other internal joint prosthesis, initial encounter (principal)

== ENCOUNTER → 2018-09-03 15:15 | Outpatient (CLI) | payer BC ==
[2018-08-09 12:13] VITALS: BMI 30.4
[2018-09-03 16:10] LABS: BASOPHILS 0.3 % (0-2); EOSINOPHILS 3.1 % (0-7); HEMATOCRIT 37.1 % (36.0-48.0); HEMOGLOBIN 12.4 g/dL (12-16); LYMPHOCYTES 36.2 % (15-50); MCH 27.9 pg (26.0-34.0); MCHC 33.4 g/dL (31.0-37.0); MCV 83.4 fL (80.0-100.0); MEAN PLATELET VOLUME 9.6 fL (7.4-10.4); MONOCYTES 8.7 % (2-11); NEUTROPHILS 51.7 % (40-80); PLATELET COUNT 274 10x3/uL (130-400); RBC 4.45 10x6/uL (4.00-5.40); RDW 13.3 % (11.5-14.5); WBC 6.2 10x3/uL (4.8-10.8)
[2018-09-03 16:19] LABS: CREATININE - SERUM 0.9 mg/dL (0.6-1.3)
[2018-09-03 17:17] LABS: ERYTHROCYTE SEDIMENTATION RATE 0 mm/hr (0-30)
== END | disposition home or self-care (01) ==
LOC: D.LABREF 15:15
PROVIDERS: ATTEND Orthopaedic Surgery
DX: T84.59XA Infection and inflammatory reaction due to other internal joint prosthesis, initial encounter (principal)

== ENCOUNTER → 2018-09-10 19:58 | Outpatient (CLI) | payer BC ==
[2018-08-09 12:13] VITALS: BMI 30.4
[2018-09-10 20:25] LABS: ERYTHROCYTE SEDIMENTATION RATE 5 mm/hr (0-30)
[2018-09-10 20:28] LABS: BASOPHILS 0.2 % (0-2); EOSINOPHILS 4.6 % (0-7); HEMATOCRIT 40.6 % (36.0-48.0); HEMOGLOBIN 13.5 g/dL (12-16); IMMATURE GRANULOCYTES 0.2 % (0-5); LYMPHOCYTES 41.1 % (15-50); MCH 27.7 pg (26.0-34.0); MCHC 33.3 g/dL (31.0-37.0); MCV 83.4 fL (80.0-100.0); MEAN PLATELET VOLUME 12.5 fL (7.4-10.4); MONOCYTES 8.2 % (2-11); NEUTROPHILS 45.7 % (40-80); PLATELET COUNT 285 10x3/uL (130-400); RBC 4.87 10x6/uL (4.00-5.40); RDW 13.4 % (11.5-14.5); WBC 6.4 10x3/uL (4.8-10.8)
[2018-09-10 20:51] LABS: CREATININE - SERUM 0.9 mg/dL (0.6-1.3)
== END | disposition home or self-care (01) ==
LOC: D.LABREF 19:58
PROVIDERS: ATTEND Orthopaedic Surgery
DX: T84.59XA Infection and inflammatory reaction due to other internal joint prosthesis, initial encounter (principal)

== ENCOUNTER → 2018-09-17 11:27 | Outpatient (CLI) | payer BC ==
[2018-08-09 12:13] VITALS: BMI 30.4
[2018-09-17 11:50] LABS: CREATININE - SERUM 0.8 mg/dL (0.6-1.3)
[2018-09-17 12:53] LABS: ERYTHROCYTE SEDIMENTATION RATE 5 mm/hr (0-30)
[2018-09-17 12:55] LABS: BASOPHILS 0.2 % (0-2); EOSINOPHILS 5.9 % (0-7); HEMATOCRIT 36.9 % (36.0-48.0); HEMOGLOBIN 12.8 g/dL (12-16); IMMATURE GRANULOCYTES 0.2 % (0-5); LYMPHOCYTES 45.9 % (15-50); MCH 27.7 pg (26.0-34.0); MCHC 34.7 g/dL (31.0-37.0); MCV 79.9 fL (80.0-100.0); MEAN PLATELET VOLUME 9.9 fL (7.4-10.4); MONOCYTES 11.3 % (2-11); NEUTROPHILS 36.5 % (40-80); RBC 4.62 10x6/uL (4.00-5.40); WBC 4.4 10x3/uL (4.8-10.8)
[2018-09-17 13:09] LABS: PLATELET COUNT 175 10x3/uL (130-400)
== END | disposition home or self-care (01) ==
LOC: D.LABREF 11:27
PROVIDERS: ATTEND Orthopaedic Surgery
DX: T84.59XA Infection and inflammatory reaction due to other internal joint prosthesis, initial encounter (principal)

== ENCOUNTER → 2018-10-01 15:47 | Outpatient (CLI) | payer BC ==
[2018-08-09 12:13] VITALS: BMI 30.4
[~2018-10-01 15:47] MED LIST changes: +ACETAMINOPHEN500 M1 PO; +FLUTICASONE PRO16 GM NASAL; +PROBIOTIC1 EAC1 PO
[2018-10-01 20:15] LABS: BASOPHILS 0.1 % (0-2); EOSINOPHILS 2.1 % (0-7); HEMATOCRIT 40.6 % (36.0-48.0); HEMOGLOBIN 13.9 g/dL (12-16); IMMATURE GRANULOCYTES 0.1 % (0-5); LYMPHOCYTES 34.6 % (15-50); MCH 27.6 pg (26.0-34.0); MCHC 34.2 g/dL (31.0-37.0); MCV 80.6 fL (80.0-100.0); MEAN PLATELET VOLUME 9.6 fL (7.4-10.4); MONOCYTES 5.9 % (2-11); NEUTROPHILS 57.2 % (40-80); RBC 5.04 10x6/uL (4.00-5.40); RDW 12.8 % (11.5-14.5)
[2018-10-01 20:54] LABS: PLATELET COUNT 258 10x3/uL (130-400)
[2018-10-01 22:14] LABS: ERYTHROCYTE SEDIMENTATION RATE 2 mm/hr (0-30)
== END | disposition home or self-care (01) ==
LOC: D.LABREF 15:47
PROVIDERS: ATTEND Orthopaedic Surgery
DX: M25.511 Pain in right shoulder (principal)

== ENCOUNTER 2018-10-02 09:50 | Inpatient (IN) | payer BC ==
[~2018-10-02] VITALS: Ht 172.7 cm; Wt 95.0 kg
[~2018-10-02 09:50] MED LIST changes: -ACETAMINOPHEN500 M1 PO; -FLUTICASONE PRO16 GM NASAL; -PROBIOTIC1 EAC1 PO
[2018-10-04] MEDS ORDERED: ACETAMINOPHEN500 M1 PO (08:23)
[2018-10-04] MEDS ORDERED: FLUTICASONE PRO16 GM NASAL (08:24)
[2018-10-04] MEDS ORDERED: PROBIOTIC1 EAC1 PO (08:24)
[2018-10-04 09:30] LABS: APPEARANCE CLEAR (CLEAR); BILIRUBIN NEGATIVE (NEGATIVE); COLOR STRAW (YELLOW); GLUCOSE NEGATIVE (NEGATIVE); KETONE NEGATIVE (NEGATIVE); NITRITE NEGATIVE (NEGATIVE); PROTEIN NEGATIVE (NEGATIVE); UROBILINOGEN NORMAL (NORMAL)
[2018-10-04 09:37] LABS: ANION GAP 12.3 mmol/L (8-16); CALCIUM 10.1 mg/dL (8.5-10.1); CARBON DIOXIDE 29.2 mmol/L (21.0-32.0); POTASSIUM - SERUM 3.5 mmol/L (3.5-5.1)
[2018-10-04 09:43] LABS: BASOPHILS 0.3 % (0-2); EOSINOPHILS 3.9 % (0-7); HEMATOCRIT 41.3 % (36.0-48.0); HEMOGLOBIN 14.1 g/dL (12-16); IMMATURE GRANULOCYTES 0.1 % (0-5); MCH 27.3 pg (26.0-34.0); MCHC 34.1 g/dL (31.0-37.0); MCV 79.9 fL (80.0-100.0); MEAN PLATELET VOLUME 9.2 fL (7.4-10.4); MONOCYTES 7.3 % (2-11); NEUTROPHILS 45.4 % (40-80); PLATELET COUNT 238 10x3/uL (130-400); RBC 5.17 10x6/uL (4.00-5.40); RDW 12.7 % (11.5-14.5); WBC 7.5 10x3/uL (4.8-10.8)
[2018-10-04 09:48] LABS: APTT 27.2 SECONDS (22.8-39.4); INR 0.99 (0.85-1.17); PROTIME 12.6 SECONDS (11.6-15.0)
[2018-10-05 12:07] VITALS: BP 118/70; BMI 32.0
--- NOTE | 2018-10-05 17:43 | NUR ---
CONSULTED ANESTHESIA REGARDING DECREASED BLOOD PRESSURE WITH SYSTOLIC BELOW 100. VERBAL ORDERS RECEIVED FROM DR CALDWELL/MICHAEL MENJIVAR CRNA TO ADMINISTER EPHEDRINE 10MG IV AND EPHEDRINE 40MG IM NOW IN PACU. ORDERS RECEIVED AND IMPLEMENTED. WILL CONTINUE TO MONITOR.
[2018-10-05 18:26] VITALS: BP 105/51
--- NOTE | 2018-10-05 18:32 | NUR ---
PT RECEIVED TO ROOM AND DENIES PAIN AT THIS TIME/ LETHARGIC BUT RESPONDS TO VERBAL INSTRUCTIONS. FAMILY AT BEDSIDE WITH CALL LIGHT IN REACH. DRESSING AND HEMOVAC INTACT TO RT. SHOULDER
[2018-10-05 20:00] VITALS: BP 94/49
--- NOTE | 2018-10-05 20:00 | NUR ---
PT ALERT & ORIENTED. POST OP SHOULDER WITH IMMOBILIZER AND HEMOVAC. PT DENIES PAIN. BP'S LOW ON VITAL MACHINE. TOOK MANUALLY WAS 110/58. PT EATING DUGLAS CRACKER AND PEANUT BUTTER. NO OTHER NEEDS. WILL CONTINUE TO MONITOR.
--- NOTE | 2018-10-05 22:03 | OP ---
PATIENT NAME: FELIPE CHAUHAN MEDICAL RECORD: [id number] :[birth year] LOCATION:D.MS Small2225 ADMISSION DATE:10/05/18 SURGEON: HOSEA GRULLON DO DATE OF OPERATION: 10/05/2018 PROCEDURE PERFORMED: Revision right reversed total shoulder arthroplasty. PREOPERATIVE DIAGNOSIS: Status post infected right shoulder. POSTOPERATIVE DIAGNOSIS: Status post infected right shoulder. INDICATIONS: Ms. Chauhan is a 62-year-old female who underwent right reverse total shoulder approximately 2 months ago, she had an infection and it was washed out once and the poly was changed. The infection came right back. Then, everything was taken out and antibiotic spacer was put in. She was on antibiotics for 6 weeks. Infection cleared and her labs were all negative. Normal white count, ESR, and CRP. She also attempted to aspirate which could not be get in the office. Having done that I told her and her that I would take cultures in the OR and make sure it was not infected and get neutrophils per high power field to check to see if there is any bacteria and they were okay with that plan. I also told that she had a fractured proximal humerus and that we cemented in. She could have a very high risk of damage to neurovascular structures, including the median nerve, musculocutaneous nerve, the radial nerve, axillary nerve, all of the nerves of the upper extremity due to the fact of revision and that she risk loss of use of that arm. She is okay with those risks including another infection and having to remove everything again and she signed the consent. SURGEON: Hosea Grullon DO DESCRIPTION OF PROCEDURE: The patient received a block by anesthesia in the preoperative area, taken to the operative suite, sedated, intubated. She was then positioned on a beach chair with the right shoulder then prepped and draped in sterile fashion. A timeout was performed and everyone was in agreement with the correct site, side, patient, and procedure. The incision then began after she received 900 mg clindamycin preoperatively down to the shoulder joint itself and a very thick amount of scar tissue. Cultures were then taken and sent right away to the lab for neutrophils per high power field. The antibiotic spacer was then removed and the wound was clean. There is no purulent pocket found or anything. It was irrigated. The glenoid was exposed and then we reamed the humerus in preparation for the stem. Once that was completed, the lab called back and said that there were less than 5. It is only 1, neutrophil high power field and a Gram stain was negative, knowing that we proceeded with the reverse total shoulder. The glenosphere was then put in. A 35 was used and a 25 baseplate and then 4 peripheral screws were placed, getting good bite. The lateralized glenosphere was impacted on and tightened. The humerus was then exposed and reamed again trialed with a 7. This seemed to be the only that could fit down the canal due to the prior cementing and the proximal humerus had been fractured. We decided to go with a 7 and 6 poly. We then prepared the canal for the cement and the cement was then pushed down the canal and on the implant itself. A nice cement mantle was created in the proximal plate and the distal part. The poly was then placed and the shoulder was reduced. X-rays were taken to confirm good placement, one the stem and two ensure there was no through and through fracture of the stem in the humerus. The shoulder moved well about the prosthesis. She got in the OR, 100 degrees of abduction, 130 of OPERATIVE REPORT [id number] TIENFELIPEY forward flexion, external rotation to approximately 60 degrees and internal rotation to the hip. The wound was then thoroughly irrigated. Tobramycin and vancomycin powder were placed in the wound and a Surgicel powder. A drain was then placed out through the deltoid and then the wound was brought together, first with #1 Vicryl in simple fashion to close the space and then a 2-0 Vicryl in inverted interrupted fashion, 4-0 Monocryl run on the skin and Prineo placed on the incision. The patient was then awakened and taken to recovery in stable condition after dressing was placed. She was put in a sling. Blood loss approximately was 250 mL. COMPLICATIONS: None. TRANSINT:[id number] Voice Confirmation ID: [id number] DOCUMENT ID: [id number] HOSEA GRULLON DO at 2201 CC: [id number] DICTATION DATE: 10/05/18 1631 AQUATICS INSTRUCTOR: 10/05/18 2502 [facility] [place] [id number] [place] [address]
[2018-10-06] VITALS (7 sets, daily range): BP systolic 94–127; BP diastolic 46–58; Ht 172.7 cm; Wt 95.0 kg
[2018-10-06 06:46] LABS: BASOPHILS 0.2 % (0-2); EOSINOPHILS 1.8 % (0-7); IMMATURE GRANULOCYTES 0.2 % (0-5); LYMPHOCYTES 20.9 % (15-50); MCH 26.8 pg (26.0-34.0); MCHC 33.4 g/dL (31.0-37.0); MCV 80.1 fL (80.0-100.0); MEAN PLATELET VOLUME 9.4 fL (7.4-10.4); MONOCYTES 9.4 % (2-11); NEUTROPHILS 67.5 % (40-80); RDW 12.8 % (11.5-14.5)
[2018-10-06 06:49] LABS: HEMATOCRIT 32.3 % (36.0-48.0); HEMOGLOBIN 10.8 g/dL (12-16); PLATELET COUNT 172 10x3/uL (130-400); RBC 4.03 10x6/uL (4.00-5.40)
[2018-10-06 06:54] LABS: CALC OSMOLALITY 282 mosm/kg (275-300); CALCIUM 8.8 mg/dL (8.5-10.1); CARBON DIOXIDE 26.7 mmol/L (21.0-32.0); CHLORIDE - SERUM 106 mmol/L (98-107); CREATININE - SERUM 0.8 mg/dL (0.6-1.3); GLUCOSE 120 mg/dL (74-106); MAGNESIUM - SERUM 1.6 mg/dL (1.8-2.4); PHOSPHOROUS 3.6 mg/dL (2.5-4.9); POTASSIUM - SERUM 3.7 mmol/L (3.5-5.1); SODIUM 140 mmol/L (136-145); UREA NITROGEN 20 mg/dL (7-18); eGFR NON AFRICAN AMERICAN 76 mL/min (90-120)
--- NOTE | 2018-10-06 09:00 | NUR ---
ALERT AND ORIENTED X4 WITH DRESSING AND HEMOVAC DRAIN INTACT TO RT. SHOULDER WITH DARK BLOOD NOTED. GENERALIZED EDEMA TO RT ARM WITH CAP REFILL<3 SEC. DILADID AND HYDROCODONE EFFECTIVE FOR PAIN MANAGEMENT. ENCOURAGED TO USE CALL LIGHT FOR ASSIST.
[2018-10-07] VITALS: BP 128/64
[2018-10-07 04:00] VITALS: BP 129/57
--- NOTE | 2018-10-07 04:07 | NUR ---
PT C/O SHOULDER PAIN 10/06. GAVE DILAUDID 1 MG IV PUSH. ALSO, C/O ACID REFLUX. GAVE PROTONIX EARLY. NO OTHER NEEDS. WILL CONTINUE TO MONITOR.
[2018-10-07 06:58] LABS: BASOPHILS 0 % (0-2); EOSINOPHILS 4.2 % (0-7); HEMATOCRIT 30.2 % (36.0-48.0); HEMOGLOBIN 10.2 g/dL (12-16); IMMATURE GRANULOCYTES 0.2 % (0-5); LYMPHOCYTES 29.4 % (15-50); MCH 26.8 pg (26.0-34.0); MCHC 33.8 g/dL (31.0-37.0); MCV 79.3 fL (80.0-100.0); MEAN PLATELET VOLUME 9.6 fL (7.4-10.4); MONOCYTES 13.7 % (2-11); NEUTROPHILS 52.5 % (40-80); PLATELET COUNT 139 10x3/uL (130-400); RBC 3.81 10x6/uL (4.00-5.40); RDW 12.8 % (11.5-14.5)
[2018-10-07 07:12] LABS: CALCIUM 9.2 mg/dL (8.5-10.1); CARBON DIOXIDE 26.5 mmol/L (21.0-32.0); CREATININE - SERUM 0.9 mg/dL (0.6-1.3); MAGNESIUM - SERUM 1.9 mg/dL (1.8-2.4); POTASSIUM - SERUM 3.5 mmol/L (3.5-5.1)
[2018-10-07 07:13] LABS: PHOSPHOROUS 2.6 mg/dL (2.5-4.9)
[2018-10-07 08:32] VITALS: BP 102/55
--- NOTE | 2018-10-07 12:55 | NUR ---
PT SITTING UP IN BED WITH FRIEND AT BEDSIDE, PT STATES THAT HER SHOULDER IS STILL HURTING AT A 7 ADVISED HER I HAVE GIVEN HER EVERYTHING THAT SHE CAN HAVE. PT NEXT MEDICATION CAN BE ADMIISTERED ABOUT 2PM WILL CONTINUE WITH PLAN OF CARE, CL IN REACH
--- NOTE | 2018-10-07 14:07 | NUR ---
I have reviewed this patient and I concur with the Shift Assessment completed by the Licensed Practical Nurse today this shift.
[2018-10-07 16:56] VITALS: BP 100/56
[2018-10-07 20:00] VITALS: BP 99/48
--- NOTE | 2018-10-07 22:58 | NUR ---
RESTING IN BED ALERT AND ORENTED ABLE TO VOICE NEEDS AND WANTS TO STAFF. DRESSING TO RIGHT SHOULDER CDI. SLING IN PLACE. IV TO LEFT HAND WITH 1/2 NS AT 50 ML/HR . CALL LIGHT AND WATER IN REACH. CHECKED OFTEN FOR NEEDS AND SAFETY.
[2018-10-08] VITALS: BP 128/59
[2018-10-08 04:00] VITALS: BP 163/62
[2018-10-08 06:11] LABS: BASOPHILS 0.2 % (0-2); EOSINOPHILS 6.1 % (0-7); HEMATOCRIT 31.2 % (36.0-48.0); HEMOGLOBIN 10.5 g/dL (12-16); IMMATURE GRANULOCYTES 0.2 % (0-5); MCH 26.6 pg (26.0-34.0); MCHC 33.7 g/dL (31.0-37.0); MEAN PLATELET VOLUME 9.5 fL (7.4-10.4); MONOCYTES 15.9 % (2-11); NEUTROPHILS 43.6 % (40-80); PLATELET COUNT 148 10x3/uL (130-400); RBC 3.95 10x6/uL (4.00-5.40); RDW 12.8 % (11.5-14.5); WBC 5.2 10x3/uL (4.8-10.8)
[2018-10-08 06:25] LABS: ANION GAP 12.3 mmol/L (8-16); CALCIUM 10.1 mg/dL (8.5-10.1); CARBON DIOXIDE 22.2 mmol/L (21.0-32.0); MAGNESIUM - SERUM 1.8 mg/dL (1.8-2.4); PHOSPHOROUS 3.2 mg/dL (2.5-4.9); POTASSIUM - SERUM 3.5 mmol/L (3.5-5.1)
--- NOTE | 2018-10-08 07:15 | NUR ---
ALERT AND ORIENTED. DRESSINGS TO RIGHT SHOULDER PRESENT, C/D/I. C/O PAIN, GAVE TORADOL FOR PAIN. NO S/S OF ACUTE DISTRESS NOTED. IV TO LEFT HAND, 1/2 NS INFUSING @ 50ML/HR. SITE PATENT WITHOUT REDNESS OR SWELLING. ON ELECTROLYTE PROTOCOL. REFUSED SCDS. PT ACHS. PT DENIES ANY NEEDS AT THIS TIME. CALL LIGHT IN REACH. WILL CONTINUE TO MONITOR.
[2018-10-08] MEDS ORDERED: DILAUDID4 MG PO (08:12)
[2018-10-08] MEDS ORDERED: VISTARIL50 MG PO (08:12)
[2018-10-08] MEDS ORDERED: SULFAMETHOXAZOL1 TA2 PO (08:13)
[2018-10-08 08:41] VITALS: BP 147/63
--- NOTE | 2018-10-08 08:48 | MORECARE ---
CASE MANAGEMENT DISCHARGE SUMMARY PATIENT: FELIPE CHAUHAN UNIT: [id number] ADM DATE: 10/05/18 AGE: 62 : 51 SEX: F ROOM/BED: D.2225 AUTHOR: STONEY SAINZ PHYSICIAN: REFERRING PHYSICIAN: FABIAN GRULLON DO DATE OF SERVICE: 10/08/18 Discharge Plan Patient Name: FELIPE CHAUHAN Facility: [facility]:[place] : 1955 Planned Disposition: Home Anticipated Discharge Date: 10/08/18 Discharge Date: Expected LOS: 3 Initial Reviewer: OLIVER Initial Review Date: 10/08/2018 Generated: 10/08/18 9:48 am DCPIA - Discharge Planning Initial Assessment Updated by [email or web address]: Phyllis Honeycutt on 10/08/18 8:46 am * Is the patient Alert and Oriented? Yes * PCP JESÚS * Pharmacy [facility] * Preadmission Environment Home with Family * Additional services required to return to the preadmission environment? No * Can the patient safely return to the preadmission environment? Yes * Has this patient been hospitalized within the prior 30 days at any hospital? Yes Patient Name: FELIPE CHAUHAN Page [phone] at 0848 All edits/amendments must be made on the electronic document DICTATION DATE: 10/08/18846 [employer]P G[employer]BAL PRODUCT LEADERSHIP: JOSE FRANCISCO 10/08/18846 RPT#: [id number] DC DATE: STATUS: ADM IN [facility] [address] [place] [address] END OF REPORT
--- NOTE | 2018-10-08 08:54 | MORECARE ---
CASE MANAGEMENT DISCHARGE SUMMARY PATIENT: FELIPE CHAUHAN UNIT: [id number] ADM DATE: 10/05/18 AGE: 62 : 51 SEX: F ROOM/BED: D.2225 AUTHOR: STONEY SAINZ PHYSICIAN: REFERRING PHYSICIAN: FABIAN GRULLON DO DATE OF SERVICE: 10/08/18 Discharge Plan Patient Name: FELIPE CHAUHAN Facility: [facility]:[place] : 1955 Planned Disposition: Home Anticipated Discharge Date: 10/08/18 Discharge Date: Expected LOS: 3 Initial Reviewer: [email or web address] Initial Review Date: 10/08/2018 Generated: 10/08/18 9:54 am Comments DCP- Discharge Planning Updated by [email or web address]: Phyllis Honeycutt on 10/08/18 7:[address] Patient Name: FELIPE CHAUHAN Admission Status: Elective Accout number: [id number] Admission Date: 10-05-2018 : 1955 Admission Diagnosis: Attending: FABIAN GRULLON Current LOS: 3 Anticipated DC Date: 10-08-2018 Planned Disposition: Home Primary Insurance: [employer] [facility] Discharge Planning Comments: CM MET WITH PATIENT ABOUT DC PLANNING/NEEDS. DENIES ANY NEEDS AT THIS TIME. STATES WILL DC TO HOME WITH . HOME IS SAFE. CM TO FOLLOW AND ASSIST NEEDED WITH DC PLANNING/NEEDS. Dukey Rider: Phyllis Honeycutt DCPIA - Discharge Planning Initial Assessment Updated by [email or web address]: Phyllis Honeycutt on 10/08/18 8:46 am * Is the patient Alert and Oriented? Yes * PCP JESÚS * Pharmacy [facility] * Preadmission Environment Home with Family * Additional services required to return to the preadmission environment? No * Can the patient safely return to the preadmission environment? Yes * Has this patient been hospitalized within the prior 30 days at any hospital? Yes Last DP export: 10/08/18 7:48 a Patient Name: FELIPE CHAUHAN Page [id number] at 0854 All edits/amendments must be made on the electronic document DICTATION DATE: 10/08/18853 ROVING TECHNICIAN: JOSE FRANCISCO 10/08/1854 RPT#: [id number] DC DATE: STATUS: ADM IN [facility] [address] [place] [address] END OF REPORT
--- NOTE | 2018-10-08 09:30 | NUR ---
PT DISCHARGED HOME VIA WHEELCHAIR WITH SPOUSE, ACCOMPANIED BY HOSPITAL STAFF. NO C/O PAIN. NO S/S OF ACUTE DISTRESS NOTED. WENT OVER DISCHARGE INSTRUCTIONS WITH PATIENT, PATIENT VERBALIZED UNDERSTANDING OF INSTRUCTIONS. DISCONTINUED IV, CATHETER TIP INTACT. PT DENIES ANY NEEDS.
--- NOTE | 2018-10-10 08:34 | MORECARE ---
CASE MANAGEMENT DISCHARGE SUMMARY PATIENT: FELIPE CHAUHAN UNIT: [id number] ADM DATE: 10/05/18 AGE: 62 : 53 SEX: F ROOM/BED: D.2225 AUTHOR: STONEY SAINZ PHYSICIAN: REFERRING PHYSICIAN: FABIAN GRULLON DO DATE OF SERVICE: 10/10/18 Discharge Plan Patient Name: FELIPE CHAUHAN Facility: [facility]:[place] : 1955 Planned Disposition: Home Anticipated Discharge Date: 10/08/18 Discharge Date: 10/08/2018 Expected LOS: 3 Initial Reviewer: [id number] Initial Review Date: 10/08/2018 Generated: 10/10/18 9:34 am Comments DCP- Discharge Planning Updated by [email or web address]: Phyllis Honeycutt on 10/08/18 7:[address] Patient Name: FELIPE CHAUHAN Admission Status: Elective Accout number: [id number] Admission Date: 10-05-2018 : 1955 Admission Diagnosis: Attending: FABIAN GRULLON Current LOS: 3 Anticipated DC Date: 10-08-2018 Planned Disposition: Home Primary Insurance: [employer] [facility] Discharge Planning Comments: CM MET WITH PATIENT ABOUT DC PLANNING/NEEDS. DENIES ANY NEEDS AT THIS TIME. STATES WILL DC TO HOME WITH . HOME IS SAFE. CM TO FOLLOW AND ASSIST NEEDED WITH DC PLANNING/NEEDS. Identifier Horse: Phyllis Honeycutt DCPIA - Discharge Planning Initial Assessment Updated by [email or web address]: Phyllis Honeycutt on 10/08/18 8:46 am * Is the patient Alert and Oriented? Yes * PCP JESÚS * Pharmacy [facility] * Preadmission Environment Home with Family * Additional services required to return to the preadmission environment? No * Can the patient safely return to the preadmission environment? Yes * Has this patient been hospitalized within the prior 30 days at any hospital? Yes Last DP export: 10/08/18 7:54 a Patient Name: FELIPE CHAUHAN Page [id number] at 0834 All edits/amendments must be made on the electronic document DICTATION DATE: 10/10/18833 PLUM PACKER: JOSE FRANCISCO 10/10/18833 RPT#: [id number] DC DATE:10/08/18 STATUS: DIS IN [facility] [address] [place] [address] END OF REPORT
== END 2018-10-08 10:19 | disposition home or self-care (01) | DRG 483 ==
LOC: D.SDCHOLD 10-05 11:30 → D.MS 10-05 11:30 → D.SDCHOLD 10-05 12:00 → D.MS 10-05 18:09
PROVIDERS: Family Medicine; ADMIT Orthopaedic Surgery; ATTEND Orthopaedic Surgery
PROC: 0RPJ08Z Removal of Spacer from Right Shoulder Joint, Open Approach (ICD-10-PCS; 2018-10-05)
PROC: 0RRJ00Z Replacement of Right Shoulder Joint with Reverse Ball and Socket Synthetic Substitute, Open Approach (ICD-10-PCS; principal; 2018-10-05 12:00)
DX: Z47.32 Aftercare following explantation of hip joint prosthesis (principal); Z98.890 Other specified postprocedural states; I10 Essential (primary) hypertension; E11.9 Type 2 diabetes mellitus without complications; K21.9 Gastro-esophageal reflux disease without esophagitis; E55.9 Vitamin D deficiency, unspecified

== ENCOUNTER 2018-12-11 08:00 | Outpatient (CLI) | payer BC ==
[2018-10-06 01:25] VITALS: BMI 31.8
[~2018-12-11 08:00] MED LIST changes: +ACETAMINOPHEN500 M1 PO; +DILAUDID4 MG PO; +FLUTICASONE PRO16 GM NASAL; +PROBIOTIC1 EAC1 PO; +SULFAMETHOXAZOL1 TA2 PO
== END 2018-12-11 23:59 | disposition home or self-care (01) ==
LOC: D.MAMMO 08:00
PROVIDERS: ATTEND Family Medicine
DX: Z12.31 Encounter for screening mammogram for malignant neoplasm of breast (principal)

== ENCOUNTER → 2018-12-11 16:48 | Outpatient (CLI) | payer BC ==
[2018-10-06 01:25] VITALS: BMI 31.8
== END | disposition home or self-care (01) ==
LOC: D.LABREF 16:48
PROVIDERS: ATTEND Orthopaedic Surgery
DX: M17.12 Unilateral primary osteoarthritis, left knee (principal)

== ENCOUNTER 2019-01-03 09:00 | Outpatient (CLI) | payer BC ==
[2018-10-06 01:25] VITALS: BMI 31.8
== END 2019-01-03 10:00 | disposition home or self-care (01) ==
LOC: D.MAMMO 09:00
PROVIDERS: ATTEND Family Medicine
DX: Z12.31 Encounter for screening mammogram for malignant neoplasm of breast (principal)